=== PATIENT | female | born 1945 | race Caucasian/White ===

== ENCOUNTER → 2023-08-25 06:45 | Outpatient (REF) | payer MEDICARE, OTHER, SELFPAY ==
[2023-08-25 10:05] LABS: Urine Albumin Negative (Neg - Trace); Urine Bilirubin Negative (Negative); Urine Character Slightly Cloudy (Clear); Urine Color Straw; Urine Glucose Negative (Negative); Urine Ketone Negative (Negative); Urine Leukocyte 2+ (Negative); Urine Nitrite Positive (Negative); Urine Occult Blood Trace (Negative); Urine Urobilinogen Negative (Neg - 1+)
[2023-08-25 10:26] LABS: Urine Bacteria Many (Negative)
[2023-08-25 10:27] LABS: Urine White Cell 50-60 /HPF (0-5)
== END ==
LOC: OLABN 06:45
PROVIDERS: ATTENDING PHYSICIAN Student in an Organized Health Care Education/Training Program
DX: R30.9 Painful micturition, unspecified (principal)
CPT/HCPCS: 81003; 81015; 87077; 87086; 87186

== ENCOUNTER 2023-08-28 09:43 | Emergency (ER) | payer MEDICARE, OTHER, SELFPAY ==
[2023-08-28 09:49] LABS: Glucose - Point of Care 102 mg/dl (70-99)
--- NOTE | 2023-08-28 09:50 | ED.CVA ---
History of Present Illness
<Rufus Cohen PA-C - Last Filed: 08/28/23 11:09>
General
Chief Complaint: CVA/TIA Symptoms
Source: patient
Exam Limitations: none
Time Seen by Provider: 08/28/23 09:46
Onset of Stroke Symptoms
Onset of symptoms known: No
Time pt last seen normal is known: No
History of Present Illness
History of Present Illness:
78-year-old female from [facility] called prehospital stroke alert. Last seen normal last evening. Was noticed to be weak slightly garbled speech this morning at 7 AM. She recently was started on Macrobid for urinary tract infection.
History of Parkinson's. Not anticoagulated. She denies any unilateral numbness or weakness. She denies any significant headache. She denies any vision loss. No chest pain or shortness of breath. No other complaints at this time
Past History
<Rufus Cohen PA-C - Last Filed: 08/28/23 11:09>
Past History
ED Past Medical History: HTN and Other (Parkinson's disease, chronic back pain, overactive bladder)
ED Past Surgical History: Orthopedic
Social History
Tobacco: Non-smoker
Alcohol: None
Phy Exam
<Rufus Cohen PA-C - Last Filed: 08/28/23 11:09>
Physical Exam
Physical Exam:
General: Well-appearing female no acute respiratory distress
HEENT: Normocephalic atraumatic no obvious facial asymmetry
Heart: Regular rate and rhythm no murmurs
Lungs: Clear to auscultation bilaterally no wheezing
Neurologic exam: Alert and oriented x 3 no facial asymmetry or slurred speech extraocular's are intact finger-nose intact no obvious drift on exam
Extremities: No cyanosis mild edema bilateral lower extremities
Abdomen soft nontender nondistended
Course
<Rufus Cohen PA-C - Last Filed: 08/28/23 11:09>
Orders/Labs/Results
Orders:
Orders
08/28/23 09:50
CT Head W/o Iv Contrast Urgent
Comment:
Reason For Exam: weakness
08/28/23 09:53
Electrocardiogram (*1) Urgent
Reason for Study: TIA/Stroke
EKG- Treatment ONCE
08/28/23 10:15
Basic Metabolic Panel Urgent
Complete Blood Count/With Diff Urgent
Abnormal Lab Results
08/28/23 08/28/23
09:47 10:15
RBC 4.04 L 10^6/uL
(4.20-5.40)
Immature Gran % 0.8 H %
(0-0.5)
Monocytes % 9.8 H %
(1.7-9.3)
Carbon Dioxide 32 H mmol/L
(22-30)
BUN 25 H mg/dl
(7-17)
POC Glucose 102 H mg/dl
(70-99)
08/28/23 10:15
08/28/23 10:15
Vital Signs
Initial and Last Documented VS:
Initial Vital Signs
BP
133/72
08/28/23 10:08
Last Documented Vital Signs
Temp Pulse Resp BP Pulse Ox
98.0 F 69 15 133/72 94
08/28/23 10:10 08/28/23 10:30 08/28/23 10:30 08/28/23 10:10 08/28/23 10:30
<Kameron Alba DO - Last Filed: 08/28/23 10:18>
Orders/Labs/Results
Orders:
Orders
08/28/23 09:50
CT Head W/o Iv Contrast Urgent
Comment:
Reason For Exam: weakness
08/28/23 09:53
Electrocardiogram (*1) Urgent
Reason for Study: TIA/Stroke
EKG- Treatment ONCE
08/28/23 10:15
Basic Metabolic Panel Urgent
Complete Blood Count/With Diff Urgent
Abnormal Lab Results
08/28/23 08/28/23
09:47 10:15
RBC 4.04 L 10^6/uL
(4.20-5.40)
Immature Gran % 0.8 H %
(0-0.5)
Monocytes % 9.8 H %
(1.7-9.3)
Carbon Dioxide 32 H mmol/L
(22-30)
BUN 25 H mg/dl
(7-17)
POC Glucose 102 H mg/dl
(70-99)
08/28/23 10:15
08/28/23 10:15
Vital Signs
Initial and Last Documented VS:
Initial Vital Signs
BP
133/72
08/28/23 10:08
Last Documented Vital Signs
Temp Pulse Resp BP Pulse Ox
98.0 F 69 15 133/72 94
08/28/23 10:10 08/28/23 10:30 08/28/23 10:30 08/28/23 10:10 08/28/23 10:30
<Rufus Cohen PA-C - Last Filed: 08/28/23 11:09>
MDM/Problems Addressed
Differential Diagnosis Includes:
Reported generalized weakness and difficulty speaking. No obvious focal deficit on exam. Called hospital stroke alert. Neurology in the room upon entrance of the patient. CT of the head noncontrast pending. Will check labs.
Bedside glucose 102
<Rufus Cohen PA-C - Last Filed: 08/28/23 11:09>
*Critical Care Note
Total Time (30-74mins, 75-104mins- exclusive of procedures): Not Applicable
<Rufus Cohen PA-C - Last Filed: 08/28/23 11:09>
Update Note
Update Note:
Workup here essentially unremarkable. CT head negative labs reviewed without significant finding. Discussed case with neurology. No signs of acute stroke on workup. She is back to her baseline. Stable for discharge back to nursing facility.
ED Attending Note
<Rufus Cohen PA-C - Last Filed: 08/28/23 11:09>
-
Portions of this chart may have been created with voice recognition software.� Occasional wrong word or��sound alike� substitutions may have occurred due to the inherent limitations of voice recognition software.
<Kameron Alba DO - Last Filed: 08/28/23 10:18>
ED Attending Note
Patient seen and examined by attending physician: Yes
I performed the substantive portion of visit, reviewed & personally made and approve the management plan that is documented in note by myself or TORI.: Yes
ED Attending Note:
seen with Pa, stroke alert, RLS, parkinsons, felt off this am, uti antibiotic x 1 day
feels back to her baseline now
Discharge Plan
Departure
Patient Disposition: Home (Routine Discharge)
Date of Disposition: 08/28/23
Time of Disposition: 11:08
Patient with high blood pressure during this ER visit?: No
Discharge Problem:
Weakness
Instructions: Generalized Weakness
Prescriptions:
No Action
acetaminophen 325 mg Tablet
650 mg PO Q4HPRN MDD 3000 mg PRN (Reason: mild pain/fever>100.4)
chlorthalidone 25 mg Tablet
25 mg PO Q48H@0830
Patient Comments:
08/28/2023, hold if pulse is less than 60; hold if SBP is less than 110.
acetaminophen 650 mg Tablet Extended Release
650 mg PO BID@
magnesium hydroxide 400 mg/5 mL Suspension
2,400 mg PO HSPRN PRN (Reason: constipation)
bisacodyl [Dulcolax (bisacodyl)] 10 mg Suppository
10 mg NV DAILYPRN PRN (Reason: no BM when MOM is ineffective)
ropinirole 2 mg Tablet
2 mg PO TID@1229,229,2029
carbidopa-levodopa 25-100 mg Tablet
1.5 tab PO TID@829,
Systane (propylene glycol) 0.4-0.3 % Drops
1 drp BOTH EYES TID@829,1329,1829
carvedilol 12.5 mg Tablet
12.5 mg PO BID@
dicyclomine 10 mg Capsule
20 mg PO Q8HPRN PRN (Reason: flatulence/abd cramping)
nitrofurantoin monohyd/m-cryst [Macrobid] 100 mg Capsule
100 mg PO BID@
Rx Instructions:
08/28/2023, first date: 08/27/2023; x 5 days.
Referrals:
Prateek Newton DO [Family Provider] -
Activity Restrictions/Additional Instructions:
Please continue current treatment. Return here for worsening symptoms otherwise follow-up with primary doctor
Interventions
Interventions:
*Risk Screen - Suicide Last Done: 08/28/23 09:56
*General Assessment Last Done: 08/28/23 09:56
*Neglect/Abuse Screening Last Done: 08/28/23 09:56
ED- Fall Risk Assessment Last Done: 08/28/23 10:11
ED- Pulmonary Assessment Last Done: 08/28/23 10:11
ED- Neurological Assessment Last Done: 08/28/23 10:11
ED- Cardiac Assessment Last Done: 08/28/23 10:11
Discharge Date and Time
Print Language: CAP[place]
[2023-08-28 10:08] VITALS: BP 133/72
[2023-08-28 10:10] VITALS: BP 133/72
[2023-08-28 10:23] LABS: % Basophils 0.8 % (0-2); % Eosinophils 0.9 % (0-6); % Immature Granulocytes 0.8 % (0-0.5); % Lymphocytes 23.5 % (20.5-51.1); % Monocytes 9.8 % (1.7-9.3); % Neutrophils 64.2 % (42.2-75.2); Absolute Eosinophils 0.1 10^3/uL (0-0.7); Absolute Lymphocytes 1.3 10^3/uL (1.2-3.4); Absolute Monocytes 0.5 10^3/uL (0.1-0.6); Absolute Neutrophils 3.4 10^3/uL (1.4-6.5); Hemoglobin 12.5 g/dL (12.0-16.0); Mean Corp Hgb Conc. 33.8 g/dL (33.0-37.0); Mean Corpuscular Hgb 30.9 pg (27.0-31.0); Mean Corpuscular Volume 91.6 fL (81.0-99.0); Mean Platelet Volume 9.5 fL (7.4-10.4); Nucleated Red Blood Cells % 0 %; Platelet Count 207 10^3/uL (130-400); Red Blood Cell Count 4.04 10^6/uL (4.20-5.40); Red Cell Dist. Width 12.9 % (11.5-14.5); White Blood Cell Count 5.3 10^3/uL (4.8-10.8)
[2023-08-28 10:39] LABS: Blood Urea Nitrogen 25 mg/dl (7-17); Calcium 9.4 mg/dl (8.4-10.2); Carbon Dioxide 32 mmol/L (22-30); Chloride 100 mmol/L (98-107); Glucose 95 mg/dl (70-99); Sodium 135 mmol/L (135-145); eGFR > 60.00
[2023-08-28 11:01] VITALS: BP 139/76
[2023-08-28 12:00] VITALS: BP 177/90
--- NOTE | 2023-08-28 12:04 | CON.NEURO4 ---
Consultation - Neurology 4
-
CONSULTING PHYSICIAN: Ninfa Fernandez
REFERRING PHYSICIAN: ER
DICTATED BY: Ninfa Fernandez
DATE/TIME OF REQUEST: 08/28/23
DATE/TIME OF CONSULTATION: 08/28/23
Reason for Consultation: Stroke alert
History of Present Illness:
Patient is a 78-year-old woman with a past medical history of Parkinson's disease, hypertension, asthma, obstructive sleep apnea, restless leg syndrome presented to hospital as a stroke alert due to waking up with confusion this morning. She
presents from [facility] and says that upon awakening that she felt confused and out of her body this morning without any speech difficulty dysarthria unilateral weakness or paresthesia vision change. Reports she was recently started on Macrobid
for urinary tract infection manifesting with frequent urination. Patient does not think she has had any recent medications change she does state that she takes Sinemet has had Parkinson disease for many years.
Past Medical History: HTN, Parkinson's disease, RLS, BETINA, asthma, osteoporosis
Surgical History: B/L TKR, sinus surgery, bilateral cataract removal, shoulder repair, breast biopsy, d&c
Family History: Mother- Alzheimer's disease
Social History: Former tobacco. Denies alcohol and illicit drug use.
Allergies: Seasonal.
Review of Symptoms:
Patient denies any fever, headache, chest pain, shortness of breath, GI or symptoms.
Physical Exam:
Elderly woman with mild-moderate parkinsonism no signs of head injury or acute distress oropharynx is clear eyes are clear no lesions neck with no masses heart rate regular breathing unlabored abdomen soft nontender no lower extremity
Neurologic Examination:
Mental status is awake and alert conversational with no aphasia praxis is normal no neglect
Cranial nerves shows no dysarthria pupils 3 mm equal round react light bilaterally visual nathan intact confrontation bilaterally extraocular's are full with no nystagmus smile symmetric no dysarthria
Motor examination shows moderate parkinsonism throughout with some cogwheel rigidity bilaterally in the arms no focal weakness no pronator drift power is 5/5 for shoulder abduction hip flexion bilaterally
Intact to light touch no sensory neglect
Reflexes trace throughout with no clonus Babinski is negative bilateral
Normal finger-nose testing bilateral
Gait exam deferred
Neuro Imaging: CT head non contrast no acute abnormality
Impressions
Very likely this is a manifestation of mild toxic metabolic encephalopathy due to UTI in a patient with pre-existing Parkinson's disease and probably mild cognitive impairment due to Parkinson's disease at baseline. CT head noncontrast was
reassuring for no large structural problem. Patient feels back to baseline currently and has no concerning deficits for ischemic stroke
Recommendations:
1. Continue home medication regimen for parkinson's disease and RLS
2. Treat UTI
3. Minimize sedating medications
4. No further workup or monitoring recommended from my perspective
Discussed patient care with: ER staff
== END 2023-08-28 13:15 | disposition home or self-care (01) ==
LOC: EMR 09:43
PROVIDERS: Physician Assistant; EMERGENCY PHYSICIAN Emergency Medicine; FAMILY PHYSICIAN Student in an Organized Health Care Education/Training Program; OTHER PHYSICIAN Student in an Organized Health Care Education/Training Program
DX: R53.1 Weakness (principal); R47.9 Unspecified speech disturbances; R41.0 Disorientation, unspecified; R60.0 Localized edema; N39.0 Urinary tract infection, site not specified; I10 Essential (primary) hypertension; G20.A1 Parkinson's disease without dyskinesia, without mention of fluctuations; G89.29 Other chronic pain; N32.81 Overactive bladder; G25.81 Restless legs syndrome; J45.909 Unspecified asthma, uncomplicated; G47.33 Obstructive sleep apnea (adult) (pediatric); M81.0 Age-related osteoporosis without current pathological fracture; Z96.653 Presence of artificial knee joint, bilateral; Z87.891 Personal history of nicotine dependence; Z91.048 Other nonmedicinal substance allergy status
CPT/HCPCS: 99285; 70450; 80048; 82962; 85025; 93005

== ENCOUNTER → 2023-09-22 09:44 | Outpatient (REF) | payer MEDICARE, OTHER, SELFPAY ==
[2023-09-22 10:28] LABS: ALT (SGPT) < 10 U/L (0-35); AST (SGOT) 18 U/L (14-36); Albumin 3.7 g/dl (3.5-5.0); Alkaline Phosphatase 73 U/L (38-126); Blood Urea Nitrogen 25 mg/dl (7-17); Calcium 9.2 mg/dl (8.4-10.2); Carbon Dioxide 28 mmol/L (22-30); Chloride 103 mmol/L (98-107); Glucose 96 mg/dl (70-99); HDL Cholesterol 100 mg/dl; LDL Cholesterol, Calculated 55 mg/dl; Potassium 3.8 mmol/L (3.5-5.1); Sodium 138 mmol/L (135-145); Total Bilirubin 0.3 mg/dl (0.2-1.3); Total Cholesterol 177 mg/dl (50-199); Triglyceride 113 mg/dl (10-149); Very Low Density Lipoprotein 22 mg/dl (0-30); eGFR > 60.00
[2023-09-22 10:36] LABS: Hematocrit 36.5 % (37.0-47.0); Hemoglobin 12.1 g/dL (12.0-16.0); Mean Corp Hgb Conc. 33.2 g/dL (33.0-37.0); Mean Corpuscular Volume 93.6 fL (81.0-99.0); Mean Platelet Volume 10.2 fL (7.4-10.4); Platelet Count 206 10^3/uL (130-400); Red Cell Dist. Width 12.9 % (11.5-14.5); White Blood Cell Count 5.9 10^3/uL (4.8-10.8)
[2023-09-22 12:11] LABS: Glycohemoglobin (HgbA1c) 5.6 % (4.0-5.6)
== END ==
LOC: OLABN 09:44
PROVIDERS: ATTENDING PHYSICIAN Student in an Organized Health Care Education/Training Program
DX: I10 Essential (primary) hypertension (principal); Z79.899 Other long term (current) drug therapy
CPT/HCPCS: 36415; 80053; 80061; 83036; 85027

== ENCOUNTER → 2023-11-02 09:15 | Outpatient (REF) | payer MEDICARE, OTHER, SELFPAY ==
[2023-11-02 11:15] LABS: Urine Albumin Negative (Neg - Trace); Urine Bilirubin Negative (Negative); Urine Character Clear (Clear); Urine Color Yellow; Urine Glucose Negative (Negative); Urine Ketone Negative (Negative); Urine Leukocyte 2+ (Negative); Urine Nitrite Positive (Negative); Urine Occult Blood Trace (Negative); Urine Urobilinogen Negative (Neg - 1+)
[2023-11-02 11:57] LABS: Urine Bacteria Moderate (Negative); Urine Red Blood Cell 0-2 /HPF (0-2); Urine White Cell 60-70 /HPF (0-5)
[2023-11-02 11:58] LABS: Urine Urothelial Cell 0-2 /LPF (FEW)
== END ==
LOC: OLABN 09:15
PROVIDERS: ATTENDING PHYSICIAN Student in an Organized Health Care Education/Training Program
DX: R30.9 Painful micturition, unspecified (principal)
CPT/HCPCS: 81003; 81015; 87077; 87086; 87186

== ENCOUNTER → 2024-01-18 21:30 | Outpatient (REF) | payer MEDICARE, OTHER, SELFPAY ==
[2024-01-19 11:23] LABS: Urine Albumin Trace (Neg - Trace); Urine Bilirubin Negative (Negative); Urine Character Very Cloudy (Clear); Urine Color Yellow; Urine Glucose Negative (Negative); Urine Ketone Trace (Negative); Urine Leukocyte 1+ (Negative); Urine Nitrite Positive (Negative); Urine Occult Blood Negative (Negative); Urine Urobilinogen Negative (Neg - 1+)
[2024-01-19 12:52] LABS: Urine Bacteria Many (Negative); Urine Red Blood Cell None Seen /HPF (0-2)
[2024-01-19 12:53] LABS: Urine Triple Phosphate Crystal Present
== END ==
LOC: OLABN 21:30
PROVIDERS: ATTENDING PHYSICIAN Student in an Organized Health Care Education/Training Program
DX: R35.0 Frequency of micturition (principal)
CPT/HCPCS: 81003; 81015; 87086; 87088

== ENCOUNTER → 2024-02-22 12:12 | Outpatient (REF) | payer MEDICARE, OTHER, SELFPAY ==
[2024-02-22 12:30] LABS: Urine Character Clear (Clear); Urine Color Yellow; Urine Leukocyte 1+ (Negative); Urine Nitrite Positive (Negative)
[2024-02-22 12:31] LABS: Urine Albumin Trace (Neg - Trace); Urine Bilirubin Negative (Negative); Urine Glucose Negative (Negative); Urine Ketone Trace (Negative); Urine Occult Blood Trace (Negative); Urine Urobilinogen Negative (Neg - 1+)
[2024-02-22 12:32] LABS: Urine Bacteria Many (Negative); Urine Red Blood Cell 0-2 /HPF (0-2); Urine White Cell 40-50 /HPF (0-5)
== END ==
LOC: OLABN 12:12
PROVIDERS: ATTENDING PHYSICIAN Student in an Organized Health Care Education/Training Program; FAMILY PHYSICIAN Student in an Organized Health Care Education/Training Program
DX: R35.0 Frequency of micturition (principal)
CPT/HCPCS: 81003; 81015; 87077; 87086; 87186

== ENCOUNTER → 2024-03-22 10:14 | Outpatient (REF) | payer MEDICARE, OTHER, SELFPAY ==
[2024-03-22 13:13] LABS: Hematocrit 37.3 % (37.0-47.0); Hemoglobin 12.3 g/dL (12.0-16.0); Mean Corpuscular Hgb 30.1 pg (27.0-31.0); Mean Corpuscular Volume 91.4 fL (81.0-99.0); Mean Platelet Volume 10.3 fL (7.4-10.4); Platelet Count 195 10^3/uL (130-400); Red Blood Cell Count 4.08 10^6/uL (4.20-5.40); Red Cell Dist. Width 12.9 % (11.5-14.5); White Blood Cell Count 5.5 10^3/uL (4.8-10.8)
[2024-03-22 13:19] LABS: ALT (SGPT) 11 U/L (0-35); AST (SGOT) 16 U/L (14-36); Albumin 3.8 g/dl (3.5-5.0); Alkaline Phosphatase 65 U/L (38-126); Blood Urea Nitrogen 22 mg/dl (7-17); Calcium 9.4 mg/dl (8.4-10.2); Carbon Dioxide 27 mmol/L (22-30); Chloride 105 mmol/L (98-107); Glucose 94 mg/dl (70-99); HDL Cholesterol 91 mg/dl; LDL Cholesterol, Calculated 64 mg/dl; Potassium 4.2 mmol/L (3.5-5.1); Sodium 139 mmol/L (135-145); Total Bilirubin 0.5 mg/dl (0.2-1.3); Total Cholesterol 174 mg/dl (50-199); Triglyceride 96 mg/dl (10-149); Very Low Density Lipoprotein 19 mg/dl (0-30); eGFR > 60.00
[2024-03-23 09:34] LABS: Glycohemoglobin (HgbA1c) 5.5 % (4.0-5.6)
== END ==
LOC: OLABN 10:14
PROVIDERS: ATTENDING PHYSICIAN Student in an Organized Health Care Education/Training Program
DX: I10 Essential (primary) hypertension (principal); R73.09 Other abnormal glucose
CPT/HCPCS: 36415; 80053; 80061; 83036; 85027

== ENCOUNTER → 2024-04-06 13:10 | Outpatient (REF) | payer MEDICARE, OTHER, SELFPAY ==
[2024-04-06 16:46] LABS: Urine Albumin Trace (Neg - Trace); Urine Bilirubin Negative (Negative); Urine Character Clear (Clear); Urine Color Yellow; Urine Glucose Negative (Negative); Urine Ketone Negative (Negative); Urine Leukocyte 1+ (Negative); Urine Nitrite Positive (Negative); Urine Occult Blood Negative (Negative); Urine Urobilinogen Negative (Neg - 1+)
[2024-04-06 17:08] LABS: Urine Bacteria Many (Negative); Urine Red Blood Cell 0-2 /HPF (0-2); Urine Squamous Cell 26-30 /LPF (Few); Urine White Cell 26-30 /HPF (0-5)
== END ==
LOC: OLABN 13:10
PROVIDERS: ATTENDING PHYSICIAN Student in an Organized Health Care Education/Training Program
DX: R35.0 Frequency of micturition (principal)
CPT/HCPCS: 81003; 81015; 87077; 87086

== ENCOUNTER → 2024-06-16 21:15 | Outpatient (REF) | payer MEDICARE, OTHER, SELFPAY ==
[2024-06-17 12:12] LABS: Urine Albumin 2+ (Neg - Trace); Urine Bilirubin Negative (Negative); Urine Character Clear (Clear); Urine Color Yellow; Urine Glucose Negative (Negative); Urine Ketone Negative (Negative); Urine Leukocyte 3+ (Negative); Urine Nitrite Positive (Negative); Urine Occult Blood 1+ (Negative); Urine Specific Gravity 1.025 (<1.030); Urine Urobilinogen Negative (Neg - 1+)
[2024-06-17 12:26] LABS: Urine Calcium Oxalate Crystals Present
[2024-06-17 12:27] LABS: Urine Bacteria Moderate (Negative); Urine White Cell 30-40 /HPF (0-5)
== END ==
LOC: OLABN 21:15
PROVIDERS: ATTENDING PHYSICIAN Student in an Organized Health Care Education/Training Program
DX: R30.9 Painful micturition, unspecified (principal)
CPT/HCPCS: 81003; 81015; 87077; 87086

== ENCOUNTER → 2024-08-08 11:01 | Outpatient (REF) | payer MEDICARE, OTHER, SELFPAY ==
[2024-08-08 12:47] LABS: Hematocrit 36.8 % (37.0-47.0); Mean Corp Hgb Conc. 32.6 g/dL (33.0-37.0); Mean Corpuscular Hgb 30.2 pg (27.0-31.0); Mean Corpuscular Volume 92.5 fL (81.0-99.0); Mean Platelet Volume 10.2 fL (7.4-10.4); Platelet Count 186 10^3/uL (130-400); Red Blood Cell Count 3.98 10^6/uL (4.20-5.40); Red Cell Dist. Width 12.8 % (11.5-14.5); White Blood Cell Count 5.5 10^3/uL (4.8-10.8)
[2024-08-08 13:00] LABS: Blood Urea Nitrogen 19 mg/dl (7-17); Calcium 9.1 mg/dl (8.4-10.2); Carbon Dioxide 29 mmol/L (22-30); Chloride 104 mmol/L (98-107); Glucose 92 mg/dl (70-99); Potassium 4.3 mmol/L (3.5-5.1); Sodium 139 mmol/L (135-145); eGFR > 60.00
== END ==
LOC: OLABN 11:01
PROVIDERS: ATTENDING PHYSICIAN Student in an Organized Health Care Education/Training Program
DX: I10 Essential (primary) hypertension (principal)
CPT/HCPCS: 36415; 80048; 85027

== ENCOUNTER 2024-09-02 06:12 | Day surgery (SDC) | payer MEDICARE, OTHER, SELFPAY ==
[2024-09-02] VITALS (17 sets, daily range): BP systolic 109–226; BP diastolic 56–122; BMI 29.8
[2024-09-02] MEDS: NORMOSOL-R/PLASMALYTE-A 1000 IV (11:37)
[2024-09-02] MEDS: APRESOLINE 10 MG IV (15:17)
== END 2024-09-02 16:35 | disposition home or self-care (01) ==
LOC: SDS 06:12
PROVIDERS: ATTENDING PHYSICIAN Urology
DX: N31.9 Neuromuscular dysfunction of bladder, unspecified (principal)
CPT/HCPCS: 51040; 93005

== ENCOUNTER → 2024-09-20 09:42 | Outpatient (REF) | payer MEDICARE, OTHER, SELFPAY ==
[2024-09-20 10:29] LABS: % Basophils 0.7 % (0-2); % Eosinophils 1.7 % (0-6); % Immature Granulocytes 0.5 % (0-0.5); % Lymphocytes 26.9 % (20.5-51.1); % Monocytes 9.4 % (1.7-9.3); % Neutrophils 60.8 % (42.2-75.2); Absolute Eosinophils 0.1 10^3/uL (0-0.7); Absolute Lymphocytes 1.6 10^3/uL (1.2-3.4); Absolute Monocytes 0.6 10^3/uL (0.1-0.6); Absolute Neutrophils 3.6 10^3/uL (1.4-6.5); Hematocrit 37.5 % (37.0-47.0); Hemoglobin 12.3 g/dL (12.0-16.0); Mean Corp Hgb Conc. 32.8 g/dL (33.0-37.0); Mean Corpuscular Hgb 30.1 pg (27.0-31.0); Mean Corpuscular Volume 91.9 fL (81.0-99.0); Mean Platelet Volume 10.4 fL (7.4-10.4); Nucleated Red Blood Cells % 0 %; Platelet Count 192 10^3/uL (130-400); Red Blood Cell Count 4.08 10^6/uL (4.20-5.40); Red Cell Dist. Width 12.9 % (11.5-14.5)
[2024-09-20 11:21] LABS: Glycohemoglobin (HgbA1c) 5.7 % (4.0-5.6)
[2024-09-20 11:56] LABS: ALT (SGPT) < 10 U/L (0-35); AST (SGOT) 17 U/L (14-36); Albumin 3.7 g/dl (3.5-5.0); Alkaline Phosphatase 63 U/L (38-126); Blood Urea Nitrogen 21 mg/dl (7-17); Carbon Dioxide 24 mmol/L (22-30); Chloride 112 mmol/L (98-107); Glucose 77 mg/dl (70-99); HDL Cholesterol 79 mg/dl; LDL Cholesterol, Calculated 75 mg/dl; Potassium 4.5 mmol/L (3.5-5.1); Sodium 140 mmol/L (135-145); Total Bilirubin 0.6 mg/dl (0.2-1.3); Total Cholesterol 167 mg/dl (50-199); Total Protein 5.9 g/dl (6.3-8.2); Triglyceride 66 mg/dl (10-149); Very Low Density Lipoprotein 13 mg/dl (0-30); eGFR > 60.00
== END ==
LOC: OLABN 09:42
PROVIDERS: ATTENDING PHYSICIAN Student in an Organized Health Care Education/Training Program
DX: I10 Essential (primary) hypertension (principal); R73.9 Hyperglycemia, unspecified
CPT/HCPCS: 36415; 80053; 80061; 83036; 85025

== ENCOUNTER → 2024-11-28 21:28 | Outpatient (REF) | payer MEDICARE, OTHER, SELFPAY ==
[2024-11-29 12:37] LABS: Urine Character Slightly Cloudy (Clear)
[2024-11-29 14:51] LABS: Urine White Cell 26-30 /HPF (0-5)
== END ==
LOC: OLABN 21:28
PROVIDERS: ATTENDING PHYSICIAN Student in an Organized Health Care Education/Training Program
DX: R82.90 Unspecified abnormal findings in urine (principal)
CPT/HCPCS: 81003; 81015; 87077; 87086

== ENCOUNTER → 2025-01-24 10:44 | Outpatient (REF) | payer MEDICARE, OTHER, SELFPAY ==
[2025-01-24 12:54] LABS: Urine Character Cloudy (Clear)
[2025-01-24 14:36] LABS: Urine Squamous Cell None seen /LPF (Few)
[2025-01-24 14:37] LABS: Urine Red Blood Cell 21-25 /HPF (0-2); Urine White Cell 30-40 /HPF (0-5)
== END ==
LOC: OLABN 10:44
PROVIDERS: ATTENDING PHYSICIAN Student in an Organized Health Care Education/Training Program
DX: R35.0 Frequency of micturition (principal)
CPT/HCPCS: 81003; 81015; 87086

== ENCOUNTER → 2025-01-26 12:05 | Outpatient (REF) | payer MEDICARE, OTHER, SELFPAY ==
[2025-01-26 13:06] LABS: Urine Character Cloudy (Clear)
[2025-01-26 13:41] LABS: Urine White Cell 90-100 /HPF (0-5)
[2025-01-26 13:44] LABS: Urine Squamous Cell 0-2 /LPF (Few)
== END ==
LOC: OLABN 12:05
PROVIDERS: ATTENDING PHYSICIAN Student in an Organized Health Care Education/Training Program
DX: R30.0 Dysuria (principal)
CPT/HCPCS: 81003; 81015; 87086

== ENCOUNTER → 2025-01-29 08:39 | Outpatient (REF) | payer MEDICARE, OTHER, SELFPAY ==
[2025-01-29 10:54] LABS: Urine Character Cloudy (Clear)
[2025-01-29 11:08] LABS: Urine Red Blood Cell 0-2 /HPF (0-2); Urine White Cell 0-2 /HPF (0-5)
== END ==
LOC: OLABN 08:39
PROVIDERS: ATTENDING PHYSICIAN Student in an Organized Health Care Education/Training Program
DX: R30.0 Dysuria (principal)
CPT/HCPCS: 81003; 81015; 87086

== ENCOUNTER 2025-02-01 16:20 | Inpatient (IN) | payer MEDICARE, OTHER, SELFPAY ==
[2025-02-01] VITALS (9 sets, daily range): BP systolic 160–195; BP diastolic 67–114; BMI 27.7
[2025-02-01 10:58] LABS: Glucose - Point of Care 115 mg/dl (70-99)
[2025-02-01] MEDS: NSS 1000 IV ×3 (11:06→20:35)
[2025-02-01] MEDS: OFIRMEV 100 IV (11:06)
--- NOTE | 2025-02-01 11:10 | ED.GENMED ---
History of Present Illness
<Cayden Kaba PA-C - Last Filed: 02/01/25 16:24>
General
Chief Complaint: Failure to Thrive
Time Seen by Provider: 02/01/25 10:39
History of Present Illness
History of Present Illness:
79-year-old female presents to the emergency department for evaluation of lethargy and fever. She does have an underlying history of Parkinson's and dementia but according to her daughter is normally communicative and responsive, per [facility]
notes she has been extremely lethargic throughout the duration of the morning. She does have a chronic suprapubic catheter and urine appears infected and murky on arrival. She is unable to provide any history due to mental status change
Past History
<Cayden Kaba PA-C - Last Filed: 02/01/25 16:24>
Past History
ED Past Medical History: HTN and Other (Parkinson's disease, chronic back pain, overactive bladder)
ED Past Surgical History: Orthopedic
Social History
Tobacco: Non-smoker
Alcohol: None
Review of Systems
<Cayden Kaba PA-C - Last Filed: 02/01/25 16:24>
Review of Systems
Allergies reviewed?: Yes
All Other Systems: ROS reviewed and negative except as documented in HPI and ROS
Phy Exam
<Cayden Kaba PA-C - Last Filed: 02/01/25 16:24>
Physical Exam
Physical Exam:
GEN: Toxic appearing, somnolent
HEENT: Oral mucosa dry, no scleral icterus, pupils equal round reactive to light
Cardiac: Regular rate, no murmur
Lung: No respiratory distress, no tachypnea, lungs clear however diminished bibasilar due to poor inspiratory effort
Abdomen: Nondistended, no pain response
MSK: No gross deformity or injuries
Skin: Good color, no pallor or jaundice, no rashes
Neuro: Somnolent, opens eyes to loud voice, nonverbal, does not follow commands, GCS 8
Psych: Calm, cooperative
Course
<Cayden Kaba PA-C - Last Filed: 02/01/25 16:24>
Orders/Labs/Results
Orders:
Orders
02/01/25
Electrocardiogram (*1) Stat
Reason for Study: Chest Pain
Comment: DONE
02/01/25 10:51
0.9% Sodium Chloride 1000 ml [Nss] 1,000 ml IV BOLUS
Acetaminophen 1000MG/100Ml [Ofirmev] 1,000 mg in 100 ml IV ONCE
Acetaminophen IV Indication:: ED Narcotic History-ONCE
02/01/25 10:52
CT Head W/o Iv Contrast Urgent
Comment:
Reason For Exam: AMS
CR Chest Portable - 1 View Urgent
Comment:
Reason For Exam: sepsis
Reason Study Needs to be Portable: Other
02/01/25 11:00
COVID-19 Antigen Urgent
Source: Nasal Swab
Complete Blood Count/With Diff Urgent
Comprehensive Metabolic Panel Urgent
Lactic Acid Q4H
Comment: CANCEL 2nd LACTIC ACID IF 1st LACTIC ACID IS LESS THAN 2
Prothrombin Time Urgent
Blood Culture Q30M
CESAR Source: Blood/Venous
Specimen Description:
Influenza A+B Rapid Molecular Urgent
CESAR Source: Nasal Swab
Specimen Description:
02/01/25 12:50
0.9% Sodium Chloride 1000 ml [Nss] 1,000 ml IV BOLUS
02/01/25 13:35
CefTRIAXone [Rocephin] 1,000 mg IV NOW STA
02/01/25 13:38
Blood Culture Q30M
CESAR Source: Blood/Venous
Specimen Description:
02/01/25 14:52
Urinalysis Reflex To Culture Urgent
Date Specimen was Collected: 02/01/25
Time Specimen was Collected: 10:58
Urine Microscopic Reflex Cult Urgent
Urine Culture Urgent
CESAR Source: U
Specimen Description:
Obtained by: Random
Date Specimen was Collected: 02/01/25
Time Specimen was Collected: 10:
02/01/25 15:55
Admit/Transfer Patient As Directed
Co-Sign Provider:
Level of Care: Inpatient admission
Assign to:: Medical/Surgical
Physician / Group: Vamshi Marcelino
Diagnosis: sepsis secondary to UTI
Reason for Hospitalization: sepsis secondary to UTI
Expected length of stay greater than two midnights?: Yes
ELOS- Estimated Length of Stay in days: 3
I certify the patient meets the requirements for IP care: Yes
PRN Pain Medication Management As Directed
May give lesser potent ordered pain med per pt: Yes
preference::
Protocol:: Medication orders for pain may be administered in a
manner that supports deferring to patient preference
when the pt is:
- Requesting an ordered lesser potent pain medication.
Least to most potent pain medications are defined
as: acetaminophen < NSAID < tramadol < opioids
(morphine, oxycodone, hydromorphone).
- Requesting a lesser dose of the same medication IF
ORDERED.
- Requesting a less intrusive route of administration
if both routes are prescribed by the provider (PO <
IV).
02/01/25 15:57
Code Status As Directed
Resuscitation Status: Do not resuscitate
Reached after discussion with pt or family/Healthcare POA: Yes
02/01/25 16:06
DNR Bracelet Application ONCE
02/01/25 16:10
CT Abd/pel W Iv And Oral Contr Routine
Comment:
Reason For Exam: abdominal pain and sepsis
Iohexol [Omnipaque] See Protocol PO NOW STA
Abnormal Lab Results
02/01/25 02/01/25 02/01/25
10:57 11:00 14:52
Absolute Neuts (auto) 7.3 H 10^3/uL
(1.4-6.5)
Absolute Lymphs (auto) 1.1 L 10^3/uL
(1.2-3.4)
Absolute Monos (auto) 0.9 H 10^3/uL
(0.1-0.6)
Neutrophils % 77.9 H %
(42.2-75.2)
Lymphocytes % 11.3 L %
(20.5-51.1)
Monocytes % 9.9 H %
(1.7-9.3)
Chloride 110 H mmol/L
(98-107)
Glucose 116 H mg/dl
(70-99)
Lactic Acid 0.6 L mmol/L
(0.7-2.0)
Total Protein 6.0 L g/dl
(6.3-8.2)
Ur Occult Blood Reflex 4+ A
(Negative)
Urine Nitrite (Reflex) Positive A
(Negative)
Leukocyte Esterase Rfl 3+ A
(Negative)
Urine RBC 16-20 A /HPF
(0-2)
Urine WBC (Reflex) 30-40 A /HPF
(0-5)
Urine Bacteria (Reflex) Moderate A
(Negative)
Urine Albumin (Reflex) 2+ A
(Neg - Trace)
POC Glucose 115 H mg/dl
(70-99)
02/01/25 11:00
02/01/25 11:00
Vital Signs
Initial and Last Documented VS:
Initial Vital Signs
Temp Pulse Resp BP Pulse Ox
100.5 F H 78 16 164/93 95
02/01/25 10:40 02/01/25 10:40 02/01/25 10:40 02/01/25 10:40 02/01/25 10:40
Last Documented Vital Signs
Temp Pulse Resp BP Pulse Ox
99.8 F 76 29 174/92 97
02/01/25 13:00 02/01/25 14:45 02/01/25 14:45 02/01/25 14:00 02/01/25 14:15
<Kameron Alba, DO - Last Filed: 02/01/25 13:55>
Orders/Labs/Results
Orders:
Orders
02/01/25
Electrocardiogram (*1) Stat
Reason for Study: Chest Pain
Comment: DONE
02/01/25 10:51
0.9% Sodium Chloride 1000 ml [Nss] 1,000 ml IV BOLUS
Acetaminophen 1000MG/100Ml [Ofirmev] 1,000 mg in 100 ml IV ONCE
Acetaminophen IV Indication:: ED Narcotic History-ONCE
02/01/25 10:52
CT Head W/o Iv Contrast Urgent
Comment:
Reason For Exam: AMS
CR Chest Portable - 1 View Urgent
Comment:
Reason For Exam: sepsis
Reason Study Needs to be Portable: Other
02/01/25 11:00
COVID-19 Antigen Urgent
Source: Nasal Swab
Complete Blood Count/With Diff Urgent
Comprehensive Metabolic Panel Urgent
Lactic Acid Q4H
Comment: CANCEL 2nd LACTIC ACID IF 1st LACTIC ACID IS LESS THAN 2
Prothrombin Time Urgent
Blood Culture Q30M
CESAR Source: Blood/Venous
Specimen Description:
Influenza A+B Rapid Molecular Urgent
CESAR Source: Nasal Swab
Specimen Description:
02/01/25 12:50
0.9% Sodium Chloride 1000 ml [Nss] 1,000 ml IV BOLUS
02/01/25 13:35
CefTRIAXone [Rocephin] 1,000 mg IV NOW STA
02/01/25 13:38
Blood Culture Q30M
CESAR Source: Blood/Venous
Specimen Description:
02/01/25 14:52
Urinalysis Reflex To Culture Urgent
Date Specimen was Collected: 02/01/25
Time Specimen was Collected: 10:58
Urine Microscopic Reflex Cult Urgent
Urine Culture Urgent
CESAR Source: U
Specimen Description:
Obtained by: Random
Date Specimen was Collected: 02/01/25
Time Specimen was Collected: 10:58
02/01/25 15:55
Admit/Transfer Patient As Directed
Co-Sign Provider:
Level of Care: Inpatient admission
Assign to:: Medical/Surgical
Physician / Group: Vamshi Marcelino
Diagnosis: sepsis secondary to UTI
Reason for Hospitalization: sepsis secondary to UTI
Expected length of stay greater than two midnights?: Yes
ELOS- Estimated Length of Stay in days: 3
I certify the patient meets the requirements for IP care: Yes
PRN Pain Medication Management As Directed
May give lesser potent ordered pain med per pt: Yes
preference::
Protocol:: Medication orders for pain may be administered in a
manner that supports deferring to patient preference
when the pt is:
- Requesting an ordered lesser potent pain medication.
Least to most potent pain medications are defined
as: acetaminophen < NSAID < tramadol < opioids
(morphine, oxycodone, hydromorphone).
- Requesting a lesser dose of the same medication IF
ORDERED.
- Requesting a less intrusive route of administration
if both routes are prescribed by the provider (PO <
IV).
02/01/25 15:57
Code Status As Directed
Resuscitation Status: Do not resuscitate
Reached after discussion with pt or family/Healthcare POA: Yes
02/01/25 16:06
DNR Bracelet Application ONCE
02/01/25 16:10
CT Abd/pel W Iv And Oral Contr Routine
Comment:
Reason For Exam: abdominal pain and sepsis
Iohexol [Omnipaque] See Protocol PO NOW STA
Abnormal Lab Results
02/01/25 02/01/25 02/01/25
10:57 11:00 14:52
Absolute Neuts (auto) 7.3 H 10^3/uL
(1.4-6.5)
Absolute Lymphs (auto) 1.1 L 10^3/uL
(1.2-3.4)
Absolute Monos (auto) 0.9 H 10^3/uL
(0.1-0.6)
Neutrophils % 77.9 H %
(42.2-75.2)
Lymphocytes % 11.3 L %
(20.5-51.1)
Monocytes % 9.9 H %
(1.7-9.3)
Chloride 110 H mmol/L
(98-107)
Glucose 116 H mg/dl
(70-99)
Lactic Acid 0.6 L mmol/L
(0.7-2.0)
Total Protein 6.0 L g/dl
(6.3-8.2)
Ur Occult Blood Reflex 4+ A
(Negative)
Urine Nitrite (Reflex) Positive A
(Negative)
Leukocyte Esterase Rfl 3+ A
(Negative)
Urine RBC 16-20 A /HPF
(0-2)
Urine WBC (Reflex) 30-40 A /HPF
(0-5)
Urine Bacteria (Reflex) Moderate A
(Negative)
Urine Albumin (Reflex) 2+ A
(Neg - Trace)
POC Glucose 115 H mg/dl
(70-99)
02/01/25 11:00
02/01/25 11:00
Vital Signs
Initial and Last Documented VS:
Initial Vital Signs
Temp Pulse Resp BP Pulse Ox
100.5 F H 78 16 164/93 95
02/01/25 10:40 02/01/25 10:40 02/01/25 10:40 02/01/25 10:40 02/01/25 10:40
Last Documented Vital Signs
Temp Pulse Resp BP Pulse Ox
99.8 F 76 29 174/92 97
02/01/25 13:00 02/01/25 14:45 02/01/25 14:45 02/01/25 14:00 02/01/25 14:15
Procedures
<Cayden Kaba PA-C - Last Filed: 02/01/25 16:24>
Urinary Catheter
Procedure completed by: Cayden Kaba PA-C
Type of urinary catheter: other (suprapubic)
Catheter size (welsh): 18
Urine description: other (oliguric)
Urine output (ml): 0
Additional information:
Suprapubic exchanged at bedside due to murky urine in existing cath
<Cayden Kaba PA-C - Last Filed: 02/01/25 16:24>
MDM/Problems Addressed
MDM/Problems Addressed:
79-year-old female arrives somnolent/altered with temp 100.5 and profoundly murky/purulent urine in her suprapubic catheter. Initially the catheter was exchanged at the bedside however no urine output was noted. Patient was profoundly hypovolemic
thus was given IV fluids and IV antipyretics. After prolonged period she remained an uric thus the catheter was reassessed and ultimately exchanged for new catheter which did yield sediment filled urine output. Subsequent urinalysis does reveal
consistency and findings of urinary tract infection. Based on prior microbiology reports third-generation cephalosporin should be adequate coverage for the patient's prior microbial species. I did confirm DNR status with the patient's daughter
however she would like her hospitalized for IV fluids and IV antibiotics. Will admit to the hospitalist service
<Cayden Kaba PA-C - Last Filed: 02/01/25 16:24>
*Pulse Oximetry
SaO2: 95
Oxygen Mode of Delivery: Room air
Patient hypoxic: no
*Critical Care Note
Total Time (30-74mins, 75-104mins- exclusive of procedures): Not Applicable
<Cayden Kaba PA-C - Last Filed: 02/01/25 16:24>
Update Note
Update Note:
Discussed case with daughter Randi via telephone, she would like her mother hospitalized for treatment of infection however agrees to uphold the outstanding POLST form indicating DNR, no heroic measures
Suprapubic catheter was initially changed by me at the bedside after arrival due to visibly purulent urine in her existing tubing. After placement no urine output was noted however the patient is visibly dehydrated thus we opted for IV hydration.
After 2 L of IV fluids the patient remained an uric, bedside ultrasound revealed that the catheter was in the bladder however urine was noted in the bladder. We were able to flush the catheter however no urine return was noted. Catheter was then
exchanged for a new suprapubic catheter which immediately returned sediment filled urine.
ED Attending Note
<Cayden Kaba PA-C - Last Filed: 02/01/25 16:24>
-
Portions of this chart may have been created with voice recognition software.� Occasional wrong word or��sound alike� substitutions may have occurred due to the inherent limitations of voice recognition software.
<Kameron Alba DO - Last Filed: 02/01/25 13:55>
ED Attending Note
Patient seen and examined by attending physician: Yes
I performed the substantive portion of visit, reviewed & personally made and approve the management plan that is documented in note by myself or TORI.: Yes
ED Attending Note:
Seen with PA agree with assessment and plan ill-appearing female
Goals of care and advance directive were clarified with the PA and the daughter she apparently would want her to be hospitalized now for antibiotics
Discharge Plan
Departure
Patient Disposition: Admit
Date of Disposition: 02/01/25
Time of Disposition: 13:40
Admit to: Med/Surg
Presentation/result/management discussed w/ accepting /: Hospitalist
Discharge Problem:
Urinary tract infection, Toxic metabolic encephalopathy
Prescriptions:
No Action
acetaminophen 325 mg Tablet
650 mg PO Q4HPRN PRN (Reason: mild pain/fever>100.4)
acetaminophen 650 mg Tablet Extended Release
650 mg PO BID
bisacodyl [Dulcolax (bisacodyl)] 10 mg Suppository
10 mg DC DAILYPRN PRN (Reason: no BM when MOM is ineffective)
ropinirole 2 mg Tablet
2 mg PO TID@1230,0230,2030
carbidopa-levodopa 25-100 mg Tablet
2 tab PO DAILY@0830
Systane (propylene glycol) 0.4-0.3 % Drops
1 drp BOTH EYES TID
carvedilol 12.5 mg Tablet
12.5 mg PO BID
ascorbic acid (vitamin C) [Vitamin C] 500 mg Tablet
500 mg PO BID
estradiol 0.01 % (0.1 mg/gram) Cream
1 g VAGINAL MOTH@2000
carbidopa-levodopa 25-100 mg Tablet
1.5 tab PO BID@1300,1700
tramadol 50 mg Tablet
50 mg PO Q6HPRN PRN (Reason: moderate pain)
magnesium hydroxide [Milk of Magnesia] 400 mg/5 mL Suspension
2,400 mg PO HSPRN PRN (Reason: constipation)
ropinirole 0.5 mg Tablet
0.5 mg PO DAILY@1700
mirtazapine 15 mg Tablet
15 mg PO HS
Referrals:
Prateek Newton DO [Family Provider, Family Practice]
Discharge Date and Time
Print Language: CITIZEN [place]
[2025-02-01 11:18] LABS: Hematocrit 39.2 % (37.0-47.0); Hemoglobin 13.1 g/dL (12.0-16.0); Mean Corp Hgb Conc. 33.4 g/dL (33.0-37.0); Mean Corpuscular Volume 89.7 fL (81.0-99.0); Nucleated Red Blood Cells % 0 %; Platelet Count 185 10^3/uL (130-400); Red Cell Dist. Width 12.6 % (11.5-14.5)
[2025-02-01 11:25] LABS: INR 0.96; PT 13.3 Sec (11.4-14.6)
[2025-02-01 11:26] LABS: COVID-19 Antigen Negative (Negative)
[2025-02-01 11:46] LABS: ALT (SGPT) < 10 U/L (0-35); AST (SGOT) 18 U/L (14-36); Albumin 3.8 g/dl (3.5-5.0); Alkaline Phosphatase 67 U/L (38-126); Blood Urea Nitrogen 15 mg/dl (7-17); Calcium 9.2 mg/dl (8.4-10.2); Carbon Dioxide 29 mmol/L (22-30); Chloride 110 mmol/L (98-107); Glucose 116 mg/dl (70-99); Potassium 3.7 mmol/L (3.5-5.1); Sodium 145 mmol/L (135-145); Total Protein 6.0 g/dl (6.3-8.2); eGFR > 60.00
[2025-02-01] MEDS: ROCEPHIN 1000 MG IV (13:39)
[2025-02-01 15:00] LABS: Urine Character Cloudy (Clear)
[2025-02-01 15:08] LABS: Urine Red Blood Cell 16-20 /HPF (0-2); Urine Squamous Cell 0-2 /LPF (Few); Urine Urothelial Cell 0-2 /LPF (FEW); Urine White Cell 30-40 /HPF (0-5)
--- NOTE | 2025-02-01 15:09 | W.PN.UPDATE ---
Update Note
Progress Note Update
79 female history of parkinsonian syndrome with concern of multiple system atrophy, dementia, hypertension, BETINA who presented from [facility] with failure to thrive and lethargy.
While in the ED noted to have a temp of 100.5, iv aceatminophen provided, spt exchnaged, wbc 9.8, bp 170's, cr/bun 0.7/60. isotonic saline x2l provided along with ctx. CTBrain wihtout acute evidence.
Acute TME vs progressive dementia
DDx: dehydration related to FTT vs UTI
IVF
Follow up UA and UCx
Sepsis (Temp >100.4/RR >20), source ?
Would check a CTAP with con to be sure we are not missing any other potential sources of sepsis
UA and UCx
IV Atb
Bcx
CTAP
Parkinsons
Conitnue carbidopa-levodopa
RLS
Continue ropinirole
HTN
Continue antihypertensives
--- NOTE | 2025-02-01 16:48 | HPS.HSE ---
Addendum entered and electronically signed by Vamshi Marcelino MD 02/02/25 11:39:
see update note
Original Note:
Family Physician
-
Family Physician: Prateek Newton DO
Chief Complaint
-
Lethargy, fever
History of Present Illness
79-year-old female with PMH of HTN,Parkinson's disease, chronic back pain, overactive bladder, depression PAD, sleep apnea with occasional CPAP use, restless leg syndrome, multiple UTIs. Presented to the ED from the nursing facility with fever and
lethargy, shortness of breath , abdominal pain and altered in mental status. She is unable to provide any history due to mental status, spoke with her daughter (Randi) who stated that her mother normally communicative and responsive and using
walker as a baseline , per [facility] she is talkative person and eat soft food at baseline and she has been extremely lethargic throughout the duration of the morning.
She does have a chronic suprapubic catheter which has been exchanged at ER.
CT scan of the head, chest X-ray and EKG done at the ER and were all normal. Urinalysis showed bacterial infection without leukocytosis.
Did confirm DNR, DNI status with the patient's daughter and medication list confirmed with nursing facility.
Medical History
Past Medical History
Past Medical History: Reports Dementia
Additional Past Medical History:
Parkinson dementia
Hypertension
Multiple UTIs
Depression
Restless leg syndrome
COPD on occasional CPAP
Peripheral Artery Disease
Chronic Back pain
Over active bladder
Past Surgical History: Reports Other
Additional Past Surgical History:
Lumbar laminectomy
Ganglian cyst removal
Right shoulder surgery
Social History
Unable to obtain full social history at this time due to: Dementia
Tobacco: Non-smoker
Alcohol: None
Drug: None
Living: Assisted Living
Family History
Family History: Not pertinent
Allergies / Home Medications
Allergies reflects when Allergies were last updated in [facility].
Home Medications with original date entered in [facility]
Allergy/Medication List:
Allergies
Allergy/AdvReac Type Severity Reaction Status Date / Time
seasonal Allergy sneezing, Uncoded 09/02/24 11:09
watery eyes
Home Medications
acetaminophen 325 mg tablet 650 mg PO Q4HPRN PRN mild pain/fever>100.4 03/26/23
acetaminophen 650 mg tablet,extended release 650 mg PO BID 03/26/23
bisacodyl 10 mg rectal suppository (Dulcolax (bisacodyl)) 10 mg [place] DAILYPRN PRN no BM when MOM is ineffective 03/26/23
carbidopa 25 mg-levodopa 100 mg tablet 2 tab PO DAILY@0830 03/26/23
peg 400-propylene glycol 0.4 %-0.3 % eye drops (Systane (propylene glycol)) 1 drp BOTH EYES TID 03/26/23
ropinirole 2 mg tablet 2 mg PO TID@1230,0230,2030 03/26/23
carvedilol 12.5 mg tablet 12.5 mg PO BID 08/28/23
ascorbic acid (vitamin C) 500 mg tablet (Vitamin C) 500 mg PO BID 08/29/24
carbidopa 25 mg-levodopa 100 mg tablet 1.5 tab PO BID@1300,1700 08/29/24
estradiol 0.01% (0.1 mg/gram) vaginal cream 1 g vaginal MOTH@199908/29/24
magnesium hydroxide 400 mg/5 mL oral suspension (Milk of Magnesia) 2,400 mg PO HSPRN PRN constipation 02/01/25
mirtazapine 15 mg tablet 15 mg PO HS 02/01/25
ropinirole 0.5 mg tablet 0.5 mg PO DAILY@1700 02/01/25
tramadol 50 mg tablet 50 mg PO Q6HPRN PRN moderate pain 02/01/25
Review of Systems
-
History Source: Patient
Cardiac: Reports Other (shortness of breath)
Abdomen/GI: Reports Abdominal Pain
Musculoskeletal: Reports Other (back pain)
Neurological: Reports Weakness
Physical Exam
Vital Signs
Vital Signs
Temp Pulse Resp BP Pulse Ox
99.8 F 72 18 195/99 93
02/01/25 13:00 02/01/25 16:45 02/01/25 16:45 02/01/25 15:00 02/01/25 16:45
Physical Exam
General: Fever and Slurred Speech
HEENT: NormoCephalic, Anicteric and Other (dry mouth )
Respiratory: Clear
Cardiac: S1/S2 and Regular Rhythm
GI: Soft and Non Tender
Musculoskeletal: No Clubbing and No Cyanosis
Skin: Dry
Neuro: AO x 3 and Slurred Speech
Psych: Calm
Laboratory Results
-
02/01/25 11:00
02/01/25 11:00
Laboratory Results
PT 13.3 Sec (11.4-14.6) 02/01/25 11:00
INR 0.96 02/01/25 11:00
Lactic Acid Cancelled 02/01/25 15:00
Total Bilirubin 1.2 mg/dl (0.2-1.3) 02/01/25 11:00
AST 18 U/L (14-36) 02/01/25 11:00
ALT < 10 U/L (0-35) 02/01/25 11:00
Alkaline Phosphatase 67 U/L (38-126) 02/01/25 11:00
Impression/Plan
-
79-year-old female presents to the emergency department from [facility] for evaluation of lethargy and fever.
#Sepsis secondary to UTI
-Urinalysis showed bacterial infection
-chest-Xray was normal , excluded chest infection
-IV fluids
-Continue IV Ceftriaxone 1000mg
-CT abd and pelvis to rule out obstructive uropathy
-Follow blood and urine culture
-In and output monitor
#Altered in mental status
-Patient has Parkinson dementia as a baseline and per [facility] and her daughter she is a coherent person at her baseline.
-Altered in mental status likely related to dehydration and sepsis secondary to urinary infection
-CT scan of the head showed no acute abnormalities
-NephroCheck
#Hypertension
-Has a hx of HTN
-continue carvedilol 12.5 mg PO BID
-Hydralazine 10 mg IV PRN if bl.pr >160/100
-Monitor blood pr.
[2025-02-01] MEDS: APRESOLINE 10 MG IV (17:53)
[2025-02-01] MEDS: FLUSH (NSS) 1 FLUSH IV (17:53)
--- NOTE | 2025-02-01 20:31 | PTCARENOTE ---
Rn food services coordinator- Completed nursing admission assessment via phone interview with Nursing keypunch operators supervisor at [facility].
[2025-02-01] MEDS: LOVENOX 40 MG SC (20:34)
[2025-02-01] MEDS: NSS (PRESERVATIVE FREE) 10 ML IV (20:35)
[2025-02-01] MEDS: PROTONIX IV 40 MG IV (20:35)
[2025-02-01 20:45] LABS: Amylase 47 U/L (30-110)
--- NOTE | 2025-02-01 21:58 | PTCARENOTE ---
received pt from ED at 2014. pt pulled over from stretcher to bed. pt very lethargic, arousable to name. pt oriented to self only. Pt BP 180s/100s, PRN hydralazine not due until 2352, AUTOMATION/CONTROLS MANAGER rehab consultant made aware. pt offers no current complaints and
appears comfortable in bed. plan on care ongoing.
[2025-02-01 22:48] LABS: Urine Character Clear (Clear)
[2025-02-01 22:55] LABS: Urine Red Blood Cell 16-20 /HPF (0-2); Urine Squamous Cell 0-2 /LPF (Few)
[2025-02-01 22:56] LABS: Urine White Cell 60-70 /HPF (0-5)
[2025-02-02] VITALS (8 sets, daily range): BP systolic 115–187; BP diastolic 71–110; BMI 27.5
--- NOTE | 2025-02-02 00:10 | PTCARENOTE ---
phone report given to ISATU Ramos for pt to be transferred to [address] [place] [address] [id number]. pts belongings gathered and transferred with pt via bed.
[2025-02-02] MEDS: APRESOLINE 10 MG IV ×5 (00:14→23:08)
--- NOTE | 2025-02-02 00:22 | W.PN.UPDATE ---
Update Note
Progress Note Update
Per nursing staff patient complained of sob, BP 164/106 hr 85, SPO2 97% On 2 L of O2.
On exam patient looks comfortable, patient is unable to communicate duo to change of mental status (base line from admission )
-No wheezing or crackle noted during chest exam.
-Patient is neg covid/ flu on admission and chest x-ray result noted.
-Duo nebs PRN
-VBG cbc, bmp, mag, troponin and Pro BNP.
-Troponin 0.037 will tend
-Ekg with NSR
[2025-02-02] MEDS: DUONEB 3 ML INH (00:42)
[2025-02-02 01:24] LABS: Hematocrit 39.8 % (37.0-47.0); Hemoglobin 13.1 g/dL (12.0-16.0); Mean Corp Hgb Conc. 32.9 g/dL (33.0-37.0); Mean Corpuscular Volume 89.8 fL (81.0-99.0); Platelet Count 176 10^3/uL (130-400); Red Cell Dist. Width 12.4 % (11.5-14.5)
[2025-02-02 01:25] LABS: Venous Blood Gas B.E. 0.1 mmol/L (-4 to +4); Venous Blood Gas O2 Sat % 100.0 %; Venous Blood Gas O2 Therapy ROOM AIR
[2025-02-02 01:41] LABS: Blood Urea Nitrogen 11 mg/dl (7-17); Calcium 8.5 mg/dl (8.4-10.2); Carbon Dioxide 25 mmol/L (22-30); Chloride 116 mmol/L (98-107); Estimated Creatinine Clearance 77 ml/min; Glucose 96 mg/dl (70-99); Magnesium 1.9 mg/dl (1.6-2.3); Potassium 3.5 mmol/L (3.5-5.1); Sodium 144 mmol/L (135-145); eGFR > 60.00
[2025-02-02 02:01] LABS: Troponin I 0.037 ng/ml
[2025-02-02 06:55] LABS: Hematocrit 38.3 % (37.0-47.0); Hemoglobin 12.9 g/dL (12.0-16.0); Mean Corp Hgb Conc. 33.7 g/dL (33.0-37.0); Mean Corpuscular Volume 91.4 fL (81.0-99.0); Platelet Count 185 10^3/uL (130-400); Red Cell Dist. Width 12.5 % (11.5-14.5)
[2025-02-02 07:23] LABS: Troponin I 0.042 ng/ml
[2025-02-02 07:37] LABS: Lipase 68 U/L (23-300)
[2025-02-02] MEDS: NSS 1000 IV ×2 (07:42→17:05)
[2025-02-02] MEDS: NSS (PRESERVATIVE FREE) 10 ML IV (07:42)
[2025-02-02] MEDS: PROTONIX IV 40 MG IV (07:42)
[2025-02-02 07:52] LABS: ALT (SGPT) 22 U/L (0-35); AST (SGOT) 26 U/L (14-36); Albumin 3.5 g/dl (3.5-5.0); Alkaline Phosphatase 63 U/L (38-126); Blood Urea Nitrogen 11 mg/dl (7-17); Calcium 9.1 mg/dl (8.4-10.2); Carbon Dioxide 23 mmol/L (22-30); Chloride 115 mmol/L (98-107); Estimated Creatinine Clearance 77 ml/min; Glucose 92 mg/dl (70-99); Potassium 3.8 mmol/L (3.5-5.1); Sodium 144 mmol/L (135-145); Total Protein 5.9 g/dl (6.3-8.2); eGFR > 60.00
--- NOTE | 2025-02-02 10:54 | W.PN.HOSP.TC ---
Today's Communication/Plan
-
Chest x ray for difficulty breathing
Speech therapist evaluation
IDDSI 5MINCED AND MOIST , THIN LIQUID DIETS
Video swallow ordered to rule out silent aspiration
ABGS ordered
pulmonology consulted
neubulizer for difficulty breathing
Assessment / Plan
Assessment / Plan
Impression:
79-year-old female with PMH of HTN,Parkinson's disease, chronic back pain, overactive bladder, depression PAD, sleep apnea with occasional CPAP use, restless leg syndrome, multiple UTIs. Presented to the ED from the nursing facility with fever and
lethargy, shortness of breath , abdominal pain and altered in mental status.
Assessment and Plans:
#Sepsis secondary to UTI
-Urinalysis showed bacterial infection
-chest-Xray 02/01 normal , excluded chest infection
-Chest Xray 2024 for difficulty breathing showed small patchy opacity in the right midlung, possibly representing atelectasis or a mild pneumonitis.
-Abdominal US 02/02/2025:no evidence for cholelithiasis. No findings to suggest acute cholecystitis.Small hypoechoic focus in the head of the pancreas. Possible pseudocyst or cystic pancreatic neoplasm.
-WBC normal , trop 0.037--->0.042 today EKG normal
-ABGS : PCO2 38, O2 SAT 98.8
-Pulmonary consulted
-IV fluids
-Continue IV Ceftriaxone 1000mg
-CT abd and pelvis: Distended gallbladder, Hepatic cyst, Large hiatal hernia, Bilateral parapelvic renal cysts, Cystic pancreatic head mass
-Follow blood and urine culture
-In and output monitor
-speech consulted
-NPO --> IDDSI 5MINCED AND MOIST , THIN LIQUID DIETS
-Video swallow ordered to rule out silent aspiration
#Altered in mental status
-Patient has Parkinson dementia as a baseline and per senior care and her daughter she is a coherent person at her baseline.
-Altered in mental status likely related to dehydration and sepsis secondary to urinary infection
-CT scan of the head showed no acute abnormalities
-NephroCheck
#Hypertension
-Has a hx of HTN
-continue carvedilol 12.5 mg PO BID
-Hydralazine 10 mg IV PRN if bl.pr >160/100
-Monitor blood pr.
DVT prophylaxis
COD: DNR , DNI
Anticipated Discharge: > 48 hours
Subjective/Interval History
-
Date of Service: February 02, 2025
Patient was not cooperative answering the question and was confused. Had trouble breathing yesterday night and nebulizer was given and her breathing improved.
Objective Data
-
Labs:
Laboratory Results
02/02/25 02/02/25 02/02/25
01:10 06:35 10:53
WBC 9.4 8.4
Hgb 13.1 12.9
Hct 39.8 38.3
Plt Count 176 185
HCO3 Pending
Sodium 144 144
Potassium 3.5 3.8
Chloride 116 H 115 H
Carbon Dioxide 25 23
BUN 11 11
Creatinine 0.6 0.6
Glucose 96 92
Calcium 8.5 9.1
Total Bilirubin 1.0
AST 26
ALT 22
Alkaline Phosphatase 63
Vital Signs:
Vital Signs
Temp Pulse Resp BP Pulse Ox
99.1 F 81 18 115/71 95
02/02/25 07:16 02/02/25 07:16 02/02/25 07:16 02/02/25 07:16 02/02/25 08:00
I&O
02/01/25 02/02/25 02/03/25
06:59 06:59 06:59
Intake Total 760 / 760
Output Total 575 / 575
Balance 185 / 185
Review of Systems
-
Unable to obtain full review of systems at this time due to: Dementia
History Source: Other (nurse)
Respiratory: Reports Trouble Breathing
Physical Exam
-
General: Respiratory Distress
Respiratory: Clear to Auscultation
Cardiac: Regular Rhythm and S1/S2
GI: Soft and Nontender
Musculoskeletal: No Clubbing, No Cyanosis and Other (bilateral leg edema)
Skin: Warm and Dry
Neuro: Slurred Speech
[2025-02-02 11:05] LABS: B.E. 1.0 mmol/L; HCO3 25.2 mmol/L (21-28); O2 Saturation % 98.8 % (94-98); PCO2 38 mmHg (32-35); PO2 97 mmHg (83-108)
--- NOTE | 2025-02-02 11:33 | CON.PUL ---
Consultation
Consultation Request
Date/Time Consultation Requested: 02/02/2025
Date/Time Consultation Performed: 02/02/2025
Requesting Provider: Dr. Marcelino
Performing Provider: Dr. Khoa Overton
Reason for Consultation: Hypoxemic respiratory failure/sepsis
Medical History
-
Chief Complaint: Hypoxemia
History of Present Illness:
79-year-old female with past medical history significant for hypertension, Parkinson disease, chronic back pain, overactive bladder, depression, peripheral arterial disease, obstructive sleep apnea occasionally using CPAP, restless leg syndrome,
history of multiple UTIs. Presented to the emergency room from the nursing facility with fever, lethargy and shortness of breath. Found to be hypoxemic as well.
Due to her mental status she was not able to provide history. Records were reviewed.
Per family patient usually communicates and is responsive, ambulates with a walker. She is found to be very lethargic.
Patient does have chronic suprapubic catheter exchanged in the emergency room.
Chest x-ray was negative for abnormalities. CT head without acute abnormalities. UA not consistent with UTI.
Patient is DNR status
We were consulted on 02/02/2025 for evaluation of hypoxemia and shortness of breath.
Past Medical History
Past Medical History: Other (See assessment and plan)
Social History
Tobacco: Non-smoker (From records)
Alcohol: None
Drug: None
Living: Other (Long-term living facility)
Occupational Exposures: Unknown
Environmental Exposures: Unknown
Family History
Family History: Unable to Obtain
Allergies / Home Medications
Allergies
Allergy/AdvReac Type Severity Reaction Status Date / Time
house dust Allergy sneezing, Verified 02/01/25 17:42
watery eyes
mold Allergy sneezing, Verified 02/01/25 17:42
watery eyes
pollen extracts Allergy sneezing, Verified 02/01/25 17:42
watery eyes
Home Medications
�Medication �Instructions �Recorded �Confirmed �Last Taken �Type
acetaminophen 325 mg tablet 650 mg PO Q4HPRN PRN mild 03/26/23 02/01/25 Unknown History
pain/fever>100.4
acetaminophen 650 mg 650 mg PO BID Pain 03/26/23 02/01/25 09/02/24 08:30 History
tablet,extended release
bisacodyl 10 mg rectal suppository 10 mg [place] DAILYPRN PRN no BM when 03/26/23 02/01/25 Unknown History
(Dulcolax (bisacodyl)) MOM is ineffective
carbidopa 25 mg-levodopa 100 mg 2 tab PO DAILY@0830 PARKINSON 03/26/23 02/01/25 09/02/24 08:30 History
tablet
peg 400-propylene glycol 0.4 %-0.3 1 drp BOTH EYES TID Eye Condition 03/26/23 02/01/25 09/02/24 08:30 History
% eye drops (Systane (propylene
glycol))
ropinirole 2 mg tablet 2 mg PO TID@1230,0230,2030 03/26/23 02/01/25 09/02/24 02:30 History
PARKINSON
carvedilol 12.5 mg tablet 12.5 mg PO BID Blood Pressure 08/28/23 02/01/25 09/02/24 08:30 History
ascorbic acid (vitamin C) 500 mg 500 mg PO BID Supplement 08/29/24 02/01/25 Unknown History
tablet (Vitamin C)
carbidopa 25 mg-levodopa 100 mg 1.5 tab PO BID@1300,1700 PARKINSON 08/29/24 02/01/25 09/02/24 08:30 History
tablet
estradiol 0.01% (0.1 mg/gram) 1 g vaginal MOTH@2000 HORMONE 08/29/24 02/01/25 Unknown History
vaginal cream
magnesium hydroxide 400 mg/5 mL 2,400 mg PO HSPRN PRN constipation 02/01/25 02/01/25 Unknown History
oral suspension (Milk of Magnesia)
mirtazapine 15 mg tablet 15 mg PO HS Mental Health/Anxiety 02/01/25 02/01/25 Unknown History
ropinirole 0.5 mg tablet 0.5 mg PO DAILY@1700 PARKINSON 02/01/25 02/01/25 Unknown History
tramadol 50 mg tablet 50 mg PO Q6HPRN PRN moderate pain 02/01/25 02/01/25 Unknown History
Review of Systems
Vitals / Labs / Diagnostic Testing
Vital Signs
Temp Pulse Resp BP Pulse Ox
98.7 F 82 20 190/110 97
02/02/25 11:18 02/02/25 11:18 02/02/25 11:18 02/02/25 11:20 02/02/25 11:18
Lab Data
02/02/25 06:35
02/02/25 06:35
Laboratory Results
02/01/25 02/02/25
11:00 10:53
PT 13.3
INR 0.96
pH 7.43
pCO2 38 H
pO2 97
HCO3 25.2
O2 Delivery Level
Microbiology
02/01/25 11:00 Blood/Venous Blood Culture - Preliminary
No Growth in 24 hours- Final report to follow
02/01/25 14:52 Urine Urine Culture - Preliminary
02/01/25 11:00 Nasal Swab Influenza Types A & B (BLADIMIR) - Final
Negative for Influenza A & B, NAAT
Negative results must be combined with clinical observations
and patient history.
Nucleic Acid Amplification test (NAAT)performed on the
[employer] platform.
Diagnostic Testing:
Physical Exam
-
HEENT: Normocephalic
Cardiovascular: S1/S2
Respiratory: Clear and Non-Labored Respirations
GI: Soft and Non Distended
Neurology: Awake, Alert, No Motor Deficits, Other (Following commands) and Other (Excellent cough effort on demand)
General: Comfortable
Assessment
-
79-year-old woman with past medical history noted, admitted with change in mental status/lethargy, mild hypoxemia and shortness of breath from her nursing facility. Apparently usually ambulates with a walker, she is talkative, able to converse.
Due to mild hypoxemia were consulted for evaluation.
Hypoxemic respiratory failure currently on 2 L supplemental oxygen.
Chest x-ray: 02/02/2025-no acute abnormality- Minimal right midlung patchy abnormality.
CT abdomen pelvis lung cuts: Bibasilar atelectatic changes mild: Large hiatal hernia
ABG 02/02/2025: 7.43/38/97 on room air
Normal renal function/normal electrolytes
Cannot rule out UTI-suprapubic catheter in place-difficult to interpret urinalysis
Toxic metabolic ibtnaetsrcwvhu-dzivriag-lyshzrbg hypoactive delirium
CT head reviewed: No acute abnormalities.
Mild troponin leak-likely non-MA. Will need to be followed
Conditions present prior admission:
Hypertension
Parkinson disease/dementia
Multiple UTIs
Depression
Suprapubic catheter
Restless leg syndrome
Obstructive sleep apnea occasional CPAP
Peripheral arterial disease
Chronic back pain
Overactive bladder
Prior lumbar laminectomy
Right shoulder surgery
Assessment and plan:
-
To my evaluation her mental status is improved. Following commands. Has a strong cough effort.
Taking deep breaths.
Denies shortness of breath.
On 2 L of supplemental oxygen.
-
From the pulmonary perspective: Chest x-ray is not impressive. Minimal left-sided patchy abnormality atelectasis versus possible pneumonitis.
Cannot rule out aspiration event but patient unable to provide history at this point.
CT abdomen pelvis lung cuts with atelectatic changes-likely due to hypoventilation from lethargy.
Lethargy with hypoventilation can explain hypoxemia.
Avoid sedatives
Head of the bed elevation
Incentive spirometry if patient able to do it.
Will keep n.p.o. until mental status improves
-
Mild troponin leak-unclear etiology-patient denies any chest pain or shortness of breath on my evaluation 02/02/2025 11:50 AM.
EKG nonischemic
Trend troponins.
Will start with echocardiogram first
If there is worsening hypoxemia or worsening respiratory compromise a CT of the chest PE protocol will be helpful hold for now my suspicion not very high.=-
Continue folding machine operator
-
Toxic metabolic encephalopathy suspected-clinically improved. Waxing and waning but to my evaluation appears to be appropriate.
Likely hypoactive delirium-I do suspect possibility of urinary infection
UA with bacteria and white blood cells, positive leukocyte esterase-difficult to interpret in the setting of suprapubic catheter
Agree with antibiotics for now cultures are pending
-
Will continue to follow along with you.
--- NOTE | 2025-02-02 11:36 | CM ---
CM following re: discharge planning.
Reviewed pt's chart, met with pt.
Pt is a 79 year old female, admitted with primary dx of Sepsis secondary to UTI. PMH of HTN,Parkinson's disease, chronic back pain, overactive bladder, depression PAD, sleep apnea with occasional CPAP use, restless leg syndrome, multiple UTIs.
Pt is not a great historian. Per [facility] educational resource coordinator, pt is a terminal manager care resident at [facility], on Medicaid 15 day bed hold, has 2 supportive children, daughter Lucille has POA. At baseline, pt requires assistance of 1 with ADL, propels
herself on a w/c, can walk with a walker with assistance. in the past 2 weeks pt has been requiring more assistance and staff was using a Bob lift for transfer.
D/C plan: return back to [facility] for a terminal manager care.
CM will follow with discharge plan updates as hospitalization progresses
--- NOTE | 2025-02-02 11:39 | W.PN.UPDATE ---
Update Note
Progress Note Update
79 female history of parkinsonian syndrome with concern of multiple system atrophy, dementia, hypertension, BETINA who presented from [facility] with failure to thrive and lethargy.
While in the ED noted to have a temp of 100.5, iv aceatminophen provided, spt exchnaged, wbc 9.8, bp 170's, cr/bun 0.7/60. isotonic saline x2l provided along with ctx. CTBrain wihtout acute evidence.
Acute hypoxic respiratory failure with RR >30
Wean o2 as tolerated
Check cxr
Nebs
Would consider hypertonic saline nebs but concerned if thinning mucous and aspiration risk
Aspiration precautions
Speech consult
Acute TME vs progressive dementia
DDx: dehydration related to FTT vs UTI
IVF
Follow up UA and UCx
Sepsis (Temp >100.4/RR >20), source ?
Would check a CTAP with con to be sure we are not missing any other potential sources of sepsis
UA and UCx
IV Atb
Bcx
CTAP showing gallbladder distention/?hydrops
-Follow up with Ultrasound
Parkinsons
Conitnue carbidopa-levodopa
RLS
Continue ropinirole
HTN
Continue antihypertensives
--- NOTE | 2025-02-02 12:07 | PTOTSP ---
ADMITTING MANAGER Swallow Evaluation
Patient presents with signs concerning for chronic oral dysphagia related to known Parkinson's disease. Patient is at an acute elevated risk for dysphagia given waxing/waning mental status and level of alertness with sepsis secondary to UTI. CXR
02/02 with concern for right sided PNA. Consider instrumental swallow testing to r/o silent aspiration as appropriate.
Recommend:
1. IDDSI 5 Minced/Moist, Thin liquids
2. Medications: as best tolerated
3. Strategies: PO only when awake/alert, 1:1 supervision/assist, single sips/bites, slow rate, ensure patient swallows vbefore next sip/bite, alternate solids and liquids, check for oral pocketing , remain upright 30 minutes after meal
4. Consider video swallow study
[2025-02-02] MEDS: ROCEPHIN 1000 MG IV (13:05)
[2025-02-02] MEDS: STERILE WATER FOR INJECTION 10 ML IV (13:05)
[2025-02-02] MEDS: VALIUM INJECTION 2 MG IV (13:38)
[2025-02-02 13:50] LABS: Troponin I 0.041 ng/ml
--- NOTE | 2025-02-02 13:55 | PTCARENOTE ---
Addendum entered by Jesusita Magallon RN 02/02/25 15:04:
This RN clarified stat dose of IV Valium prior to admin, okay to give with IV hydralazine per resident. BP rechecked at 1500 159/92 HR 83, patient somnolent and hard to rouse after IV Valium, rouses with sternal rub before falling back asleep. POX
98% on 2L, ax temp 98.3F, IVF infusing through R FA. Patient placed on tele for cont POX, NSR on monitor. MD and resident made aware of BP results and patient's mentation, made aware of small R sided facial droop on assessment again, no new orders
at this time.
Original Note:
Patient lethargic, wakes to verbal/tactile stimuli and with care before quickly falling back asleep, AAOX2 when awake, denies any specific concerns other than orthopnea, POX 97% on 2L. Patient cleared for diet per speech, for VSE in AM. BP taken by
tech at 1100 184/105 HR 82 RUE, manual taken by this RN 190/110. PRN IV hydralazine administered, MD and resident made aware. Repeat automatic BP at 1300 187/89 RUE, patient lethargic but waking with care, denies any concerns. MD and resident made
aware, stat doses of PRN IV Valium and hydralazine ordered - see JUL. CXR, ABG, and Abd US completed this AM, echo ordered per pulm.
Patient with mild R sided facial droop noted on assessment this AM by this RN and resp therapist Brenda; neuro check performed by this RN WNL, daughter at bedside stating she feels patient's smile is at baseline. MD and resident aware, no new orders.
--- NOTE | 2025-02-02 16:11 | PN.CDI ---
CDI
- -
CDI:
Physician Documentation Request
Admit Date: 02/01/25 16:20
Dear Doctor Geronimo,
Progress notes include a diagnosis of sepsis.
Patient's presenting temp was 100.5 , heart rates 70s-80s , respiratory rate 16-32
WBCs
Laboratory Tests
02/01/25 02/02/25
11:00 01:10
WBC 9.4 9.4
Recognized standard criteria for this condition:
�Sepsis
-Systemic manifestations of infection, with 2 or more SIRS criteria which include:
-Fever > 100.9 F or hypothermia < 96.8 F
-Leukocytosis WBC > 12,000 or leukopenia, WBC < 4,000, or > 10% bands
-Tachycardia- > 90 beats/minute
-Tachypnea- RR > 20 breaths/minute or PaCO2 < 32mmHg
Source: Merck Manual 2013
-Documentation should include the known or suspected organism, and the underlying infection, such as UTI or pneumonia
Based on the above information and the recognized standard SIRS criteria, please clarify if sepsis is still an accurate diagnosis, and reflective of the patient�s condition, to ensure quality of the medical record.
Please clarify in the Progress Notes:
�Sepsis is/was present and is a clinical diagnosis based on (please include this additional support in the medical record)
�After study sepsis has been ruled out
�Other
Use of terms such as suspected, likely, concern for, or probable (associated with a specific diagnosis that is being evaluated, monitored, or treated as if it exists) are acceptable and can be coded in the inpatient setting, when documented at the
time of discharge.
Thank you,
Duyen Phoenix RN, BSN
CDI Specialist
tiger text
Please use your independent medical judgment in providing your response.
[2025-02-02] MEDS: LOVENOX 40 MG SC (17:05)
[2025-02-02] MEDS: TYLENOL/FEVERALL 650 MG RECTAL (17:56)
--- NOTE | 2025-02-02 18:03 | PTCARENOTE ---
Patient warm, face flushed on assessment, lethargic, rouses briefly to tactile stimuli before falling back asleep. Ax temp 99.2F, oral temp 100.4F, rectal temp 100.9F. BP 140/79 RUE, HR 80s NSR on monitor, 98% 2L. MD made aware of patient's temp and
mentation, rectal Tylenol ordered per MD and administered by this RN - see MAR. IVF infusing through R FA, SCDs in place, suprapubic draining yellow urine.
[2025-02-02 19:15] LABS: Troponin I 0.047 ng/ml
[2025-02-02] MEDS: ULTRAM 50 MG PO (23:36)
[2025-02-03 03:27] VITALS: BP 187/103
[2025-02-03] MEDS: NSS 1000 IV ×2 (03:27→12:23)
[2025-02-03] MEDS: TYLENOL 650 MG PO (03:28)
[2025-02-03] MEDS: APRESOLINE 10 MG IV (03:53)
[2025-02-03 04:18] VITALS: BP 155/84
[2025-02-03 06:13] VITALS: BMI 28.1
[2025-02-03 07:01] VITALS: BP 182/94
[2025-02-03] MEDS: NSS (PRESERVATIVE FREE) 10 ML IV (07:59)
[2025-02-03] MEDS: PROTONIX IV 40 MG IV (08:00)
[2025-02-03 08:08] LABS: Hematocrit 39.0 % (37.0-47.0); Hemoglobin 12.9 g/dL (12.0-16.0); Mean Corp Hgb Conc. 33.1 g/dL (33.0-37.0); Mean Corpuscular Volume 91.3 fL (81.0-99.0); Nucleated Red Blood Cells % 0 %; Platelet Count 186 10^3/uL (130-400); Red Cell Dist. Width 12.5 % (11.5-14.5)
[2025-02-03 08:44] LABS: ALT (SGPT) 22 U/L (0-35); AST (SGOT) 32 U/L (14-36); Albumin 3.3 g/dl (3.5-5.0); Alkaline Phosphatase 65 U/L (38-126); Blood Urea Nitrogen 10 mg/dl (7-17); Calcium 8.5 mg/dl (8.4-10.2); Carbon Dioxide 24 mmol/L (22-30); Chloride 112 mmol/L (98-107); Estimated Creatinine Clearance 86 ml/min; Glucose 100 mg/dl (70-99); Potassium 3.3 mmol/L (3.5-5.1); Sodium 141 mmol/L (135-145); Total Protein 5.6 g/dl (6.3-8.2); eGFR > 60.00
--- NOTE | 2025-02-03 09:02 | W.PN.HOSP.TC ---
Addendum entered and electronically signed by Vamshi Marcelino MD 02/04/25 15:02:
see update note
Original Note:
Today's Communication/Plan
-
K 3.3, repleted
SVS , Passed
Advanced the diet to IDDSI 6 soft and bite size
pulmonary consulted
peripheral venous US showed no DVT
PT/OT
patient's daughter contacted and informed about the discharge
case packer contacted to arrange for transportation
Discharged home on Doxycycline 200 mg BID for 5 days
Assessment / Plan
Assessment / Plan
Impression:
79-year-old female with PMH of HTN,Parkinson's disease, chronic back pain, overactive bladder, depression PAD, sleep apnea with occasional CPAP use, restless leg syndrome, multiple UTIs. Presented to the ED from the nursing facility with fever and
lethargy, shortness of breath , abdominal pain and altered in mental status.
Assessment and Plans:
#Sepsis
-Temp (>100.4/RR >20)
- less likely to UTI ( suprapubic catheter in place-difficult to interpret urinalysis) and likely to bronchitis?
-chest-Xray 02/01 ecluded chest infection
-Chest Xray 2024 for difficulty breathing showed small patchy opacity in the right midlung, possibly representing atelectasis or a mild pneumonitis.
-Abdominal US 02/02/2025:no evidence for cholelithiasis. No findings to suggest acute cholecystitis.Small hypoechoic focus in the head of the pancreas. Possible pseudocyst or cystic pancreatic neoplasm.
-WBC normal , trop 0.037--->0.042-->0.47 today EKG normal, non ischemic myocardiac injury, likely due to high blood pr. , ECHO no wall motion abnormalities
-ABGS : PCO2 38, O2 SAT 98.8
-Pulmonary consulted
-IV fluids
-K 3.3 , repleted
-Continue IV Ceftriaxone 1000mg
-CT abd and pelvis: Distended gallbladder, Hepatic cyst, Large hiatal hernia, Bilateral parapelvic renal cysts, Cystic pancreatic head mass
-Follow blood and urine culture
-In and output monitor
-speech consulted
- IDDSI 6 soft and bite size sold with thin liquids
-Video swallow ordered today to rule out aspiration and results showed no aspiration, recommended IDDSI 6 soft and bite size sold with thin liquids
#Acute hypoxic respiratory failure
-RR >30, likely aspiration/pneumonitis
-Lethargy with hypoventilation can explain hypoxemia.
-Wean o2 as tolerated
-Continue Nebs
-Aspiration precautions
-Speech IDDSI5 advanced to IDDSI6, VSE passed
-Incentive spirometry if patient able to do it
-Avoid sedative
-patient is off O2 today
-discharge home on PO doxycycline for 5 days for aspiration bronchitis
-ECHO of heart showed mildly elevated estimated PASP at 40 mmHg and US Periph Venous to exclude DVT and was negative for thrombus
#Acute Toxic metabolic encephalopathy
-Likely hypoactive delirium.improved today , patient back to baseline mental status today
-Patient has Parkinson dementia as a baseline and per jail and her daughter she is a coherent person at her baseline.
-Altered in mental status likely related to dehydration related to failure to thrive vs urinary infection
-CT scan of the head showed no acute abnormalities
-NephroCheck no focal neurological deficits
-Urine culture without significant growth. 02/01/2025
-UA with bacteria and white blood cells, positive leukocyte esterase-difficult to interpret in the setting of suprapubic catheter
-Blood culture negative
-Currently on ceftriaxone
#Hypertension
-Has a hx of HTN
-continue carvedilol 12.5 mg PO BID
-Hydralazine 10 mg IV PRN if bl.pr >160/100
-Monitor blood pr.
Daughter updated
Off of O2, breathing improved, afebrile no white count
DVT study pending
Likely able to DC home today on Doxy x5days
DVT prophylaxis
COD: DNR , DNI
Anticipated Discharge: Today
Subjective/Interval History
-
Date of Service: February 03, 2025
patient is awake and oriented x3. Patient was communicating and followed commands and answered questions. No SOB, chest pain, abd pain, nausea, vomiting, fever,chills.
Objective Data
-
Labs:
Laboratory Results
02/03/25
07:47
WBC 7.6
Hgb 12.9
Hct 39.0
Plt Count 186
Sodium 141
Potassium 3.3 L
Chloride 112 H
Carbon Dioxide 24
BUN 10
Creatinine 0.6
Glucose 100 H
Calcium 8.5
Total Bilirubin 0.9
AST 32
ALT 22
Alkaline Phosphatase 65
Vital Signs:
Vital Signs
Temp Pulse Resp BP Pulse Ox
98.6 F 87 16 182/94 96
02/03/25 07:01 02/03/25 07:01 02/03/25 07:01 02/03/25 07:01 02/03/25 07:01
I&O
02/02/25 02/03/25 02/04/25
06:59 06:59 06:59
Intake Total 760 / 760 1680 / 1680
Output Total 575 / 575 950 / 950
Balance 185 / 185 730 / 730
Review of Systems
-
History Source: Patient
All other systems: Reviewed and negative
Physical Exam
-
General: Well Developed, Well Nourished and Comfortable
HEENT: Normocephalic and Atraumatic
Respiratory: Clear to Auscultation
Cardiac: Regular Rhythm and S1/S2
GI: Soft and Nontender
Musculoskeletal: No Clubbing and No Cyanosis
Neuro: Awake, Alert, Oriented and AO x 3
[2025-02-03 09:56] LABS: Glucose - Point of Care 116 mg/dl (70-99)
--- NOTE | 2025-02-03 10:03 | PN.CDI ---
CDI
- -
CDI:
Physician Documentation Request
Admit Date: 02/01/25 16:20
Dear Doctor Geronimo,
Patient presented to the ED complaining of lethargy and fever.
Troponin results:
Laboratory Tests
02/02/25 02/02/25 02/02/25
01:10 06:35 13:09
Troponin I 0.037 H* 0.042 H* 0.041 H*
02/02/25
18:41
Troponin I 0.047 H*
Could you please provide a diagnosis that supports the above lab abnormalities and additional evaluation/monitoring:
Non ischemic myocardial injury
Type II VT demand ischemia
Other
Use of terms such as suspected, likely, concern for, or probable (associated with a specific diagnosis that is being evaluated, monitored, or treated as if it exists) are acceptable and can be coded in the inpatient setting, when documented at the
time of discharge.
Thank you,
Duyen Phoenix RN, BSN
CDI Specialist
tiger text
Please use your independent medical judgment in providing your response.
[2025-02-03] MEDS: KCL 270 MEQ IV (10:14)
[2025-02-03] MEDS: COREG 12.5 MG PO (10:16)
--- NOTE | 2025-02-03 10:17 | W.PN.PUL3 ---
Today's Communication / Plan
-
Will get lower extremity Dopplers
If hypoxemia continues then CT angiogram of the chest will be necessary given mild troponin leak and mild pulmonary hypertension on echo.
Continue nebulizers as needed for secretion clearance
Incentive spirometer
Aspiration precaution
Video swallow evaluation pending
If no other infectious site found may treat for aspiration bronchitis doxycycline for 5 days.
If lower extremity Dopplers negative okay to discharge from my perspective.
Assessment
-
79-year-old woman with past medical history noted, admitted with change in mental status/lethargy, mild hypoxemia and shortness of breath from her nursing facility. Apparently usually ambulates with a walker, she is talkative, able to converse.
Due to mild hypoxemia were consulted for evaluation.
Hypoxemic respiratory failure currently on 2 L supplemental oxygen.
Chest x-ray: 02/02/2025-no acute abnormality- Minimal right midlung patchy abnormality.
CT abdomen pelvis lung cuts: Bibasilar atelectatic changes mild: Large hiatal hernia
ABG 02/02/2025: 7.43/38/97 on room air
Normal renal function/normal electrolytes
Cannot rule out UTI-suprapubic catheter in place-difficult to interpret urinalysis
Toxic metabolic qawondupfqzvhk-[id number]-[id number] hypoactive delirium
CT head reviewed: No acute abnormalities.
Mild troponin leak-likely non-TX. Will need to be followed
Conditions present prior admission:
Hypertension
Parkinson disease/dementia-?multiple system atrophy, dementia,
Multiple UTIs
Depression
Suprapubic catheter
Restless leg syndrome
Obstructive sleep apnea occasional CPAP
Peripheral arterial disease
Chronic back pain
Overactive bladder
Prior lumbar laminectomy
Right shoulder surgery
Assessment and plan:
-
To my evaluation her mental status is improved. Following commands. Has a strong cough effort.
Taking deep breaths.
Denies shortness of breath.
On 2 L of supplemental oxygen.
-
From the pulmonary perspective: Chest x-ray is not impressive. Minimal left-sided patchy abnormality atelectasis versus possible pneumonitis.
Cannot rule out aspiration event but patient unable to provide history at this point.
CT abdomen pelvis lung cuts with atelectatic changes-likely due to hypoventilation from lethargy.
Lethargy with hypoventilation can explain hypoxemia.
Avoid sedatives
Head of the bed elevation
Incentive spirometry if patient able to do it.
Diet advanced to modified.
VSE performed today 02/03/2025-pending
-
Mild troponin leak-unclear etiology-patient denies any chest pain or shortness of breath on my evaluation 02/02/2025 11:50 AM.
Echocardiogram 02/02/2025. Normal LVEF. No motion wall abnormalities.Normal RV function.Mildly elevated pulmonary pressures.
EKG nonischemic
Not tachycardic
Hemodynamically stable
Denies chest pain
proBNP 1850-moderately increased.
Mildly positive-Have not cleared completely. Not significantly elevating.
Will obtain lower extremity ultrasounds rule out DVT.
-
If there is worsening hypoxemia or worsening respiratory compromise a CT of the chest PE protocol will be helpful hold for now my suspicion not very high.
Continue engine monitor- Sinus
-
Not bronchospastic on exam.
Nebulizers as needed for secretion clearance
Incentive spirometry if able
Continue with aspiration precautions
-
Toxic metabolic encephalopathy suspected-clinically improved.
Likely hypoactive delirium.
Urine culture without significant growth. 02/01/2025
UA with bacteria and white blood cells, positive leukocyte esterase-difficult to interpret in the setting of suprapubic catheter
Blood culture negative
Currently on ceftriaxone
Not unreasonable to treat for aspiration bronchitis 5 days May use doxycycline If there is no other infectious site found
-
Discussed with primary team, if lower extremity Dopplers negative okay to discharge from my perspective.
Data reviewed:
Echocardiogram 02/02/2025:
1. Normal biventricular size and function without regional wall motion abnormalities.
2. LVEF is 55-60% by Fernandez's biplane method of discs.
3. Mild aortic stenosis, mean gradient 17 mmHg.
4. Mildly elevated estimated PASP at 40 mmHg.
5. Compared to prior from September 14, 2020, there is new mild aortic stenosis.
Subjective Data
-
Date of Service:
Date of Service: February 03, 2025
Chief Complaint: Pulmonary Follow Up (Acute bronchitis)
Subjective:
Patient denies respiratory complaints other than coughing
Denies shortness of breath at rest
Objective Data
Data Reviewed
Vital Signs / I&O / Oxygen:
Vital Signs
Temp Pulse Resp BP Pulse Ox
98.6 F 87 16 182/94 96
02/03/25 07:01 02/03/25 07:01 02/03/25 07:01 02/03/25 07:01 02/03/25 07:01
Intake and Output
02/02/25 02/03/25 02/04/25
06:59 06:59 06:59
Intake Total 760 / 760 1680 / 1680
Output Total 575 / 575 950 / 950
Balance 185 / 185 730 / 730
SaO2 96
Nasal Cannula flow liters per 2
minute
Physical Exam
General: Comfortable
HEENT: Normocephalic
Cardiovascular: S1-S2
Respiratory: Non-Labored Respirations
GI: Soft and Non Distended
Neurology: Awake, Alert and Other (Follows commands)
Skin: Warm
Labs/Micro/Reports
Lab Data
02/03/25 07:47
02/03/25 07:47
Laboratory Results
02/02/25
10:53
pH 7.43
pCO2 38 H
pO2 97
HCO3 25.2
O2 Delivery Level
Microbiology
02/01/25 14:52 Urine Urine Culture - Final
02/01/25 22:42 Urine Urine Culture - Final
No Significant Growth
02/01/25 20:32 Nose MRSA Screen - Final
No Methicillin Resistant Staphylococcus aureus isolated.
02/01/25 13:38 Blood/Venous Blood Culture - Preliminary
No Growth in 24 hours- Final report to follow
02/01/25 11:00 Blood/Venous Blood Culture - Preliminary
No Growth in 24 hours- Final report to follow
02/01/25 11:00 Nasal Swab Influenza Types A & B (BLADIMIR) - Final
Negative for Influenza A & B, NAAT
Negative results must be combined with clinical observations
and patient history.
Nucleic Acid Amplification test (NAAT)performed on the
[employer] platform.
[2025-02-03 11:12] VITALS: BP 155/90
[2025-02-03] MEDS: KCL 40 MEQ PO (12:23)
[2025-02-03] MEDS: REQUIP 2 MG PO (12:26)
[2025-02-03] MEDS: SINEMET 25-100 1.5 TABLET PO (12:28)
--- NOTE | 2025-02-03 12:38 | W.PN.UPDATE ---
Update Note
Progress Note Update
Acute hypoxic respiratory failure with RR >30, likely aspiration/pneumonitis
-Fever likely related to aspiration event rather then new onset infection
Wean o2 as tolerated
Nebs
Aspiration precautions
Speech IDDSI5, VSE passed
Acute TME vs progressive dementia
DDx: dehydration related to FTT vs UTI
IVF
UCx without acute findings
Sepsis (Temp >100.4/RR >20), source ?
Would check a CTAP with con to be sure we are not missing any other potential sources of sepsis
UA and UCx
IV Atb
Bcx
CTAP showing gallbladder distention/?hydrops
--Ultrasound - Distended gallbladder, but no evidence for cholelithiasis. No findings to suggest acute cholecystitis
Parkinsons
Conitnue carbidopa-levodopa
RLS
Continue ropinirole
HTN
Continue antihypertensives
[id number]
EKG nonischemic
Likley related to mild pHTN
2d echo without WMA
DVT Study ordered if negative low clinical suspicion for PE
Daughter updated
Off of O2, breathing improved, afebrile no white count
DVT study pending
Likely able to DC home today on Doxy x5days
[2025-02-03 13:11] LABS: Glucose - Point of Care 113 mg/dl (70-99)
[2025-02-03] MEDS: STERILE WATER FOR INJECTION 10 ML IV (13:49)
[2025-02-03] MEDS: ROCEPHIN 1000 MG IV (13:50)
--- NOTE | 2025-02-03 14:00 | CM ---
CM following re: discharge planning.
Reviewed pt's chart, met with pt and spoke to pt's daughter Lucille over the phone to update on discharge plan progress.
According to pt is medically stable to be discharged today. Both pt and her daughter are aware, expressed their agreement.
IMM reviewed with daughter Lucille, placed on chart, daughter has a copy.
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 A referral to [facility] made, spoke to admission coordinator Milad, pt is accepted for admission today.
to arrange ambulance transport BLS. PMNC completed and left with
[facility] nursing rapport: [phone]
Discharge instructions fax: [phone]
D/C plan: [facility] today
[2025-02-03 15:59] VITALS: BP 157/95
--- NOTE | 2025-02-04 07:00 | W.DCSUMMARY ---
Discharge Summary
Discharge Data
Date of Admission: 02/01/25
Date of Discharge: 02/03/25
-
Pending Results: No
Hospital Course
Discharge Physician:
Phoenix Montana
Disposition:
[facility]PC
Primary Care Physician:
Prateek Newton
Principal Discharge Diagnosis:
Toxic metabolic encephalopathy, sepsis, Acute hypoxic respiratory failure
Chronic Discharge Diagnosis:
Parkinson dementia, Hypertension, Multiple UTIs, Depression, Restless leg syndrome, COPD on occasional CPAP, Peripheral Artery Disease, Chronic Back pain, Over active bladder
Hospital Course:
79-year-old female presents to the emergency department from nursing facility ([facility]) for evaluation of lethargy and fever. She does have an underlying history of Parkinson's and dementia but according to her daughter she is normally
communicative and responsive, per [facility] she has been extremely lethargic throughout the duration of the morning and became incoherent. She does have a chronic suprapubic catheter and urine appears infected and murky on arrival. She is unable
to provide any history due to mental status change. At ER the initial temp was 100.5 F and respiratory rate 16 then increased >20 with highest 32. Patient was tested negative for influenza A&B. urinalysis was done at the ER which showed bacterial
infection given the fact that the patient has suprapubic catheter was hard to interpret the urinalysis and UTI can not be ruled out. Blood and urine culture were done for definitive diagnosis. Given the patient altered in mental status, CT of the
head was done to rule out hemorrhagic stroke which showed no acute abnormalities. chest X-ray was normal with no evidence of infection or acute abnormalities. Patient stated at the ER that she has abdominal pain and back pain with shortness of
breath with no abdominal tenderness and clear lungs on auscultation.Patient looked dehydrated (dry mucous membrane). CT scan of the abd and pelvis with IV contrast was done to exclude other source of infection or abnormalities and the scan showed
distended bladder with no stones. At ED patient started on IV fluids and antibiotic (Ceftriaxone 1000mg) and admitted for sepsis with initial UTI source and failure to thrive. During hospitalization patient was c/o shortness of breath, multiple
x-rays were done which showed minimal right midlung patchy abnormality which could be atelectasis vs pneumonitis due to aspiration. EKG was normal and troponin elevated which likely related to non ischemic myocardiac injury , ABGA was done and was
abnormal and patient found to have hypoxemic respiratory failure per telemetry registered nurse and received 2L of O2 supplement with nebulizers for secretion clearance. Blood pressure was elevated during hospitalization and patient received multiple dosed of
Hydralazine IV in addition to blood pressure home medications. On 02/03/2025 morning patient was awake,oriented, able to communicant and follow commands with stable vital signs and off the O2 supplement. Speech therapy evaluated her and Video
swallow evaluation test was done which showed no aspiration therefore, her diet had been advanced to soft solid and thin liquids.Given the patient shortness of breath and elevated BNP and troponin levels during hospitalization echocardiogram was
done and showed mildly elevated pulmonary artery pressure therefore, lower extremities Doppler was done to rule out pulmonary embolism cause by DVT and the test was negative. Urine culture results showed no growth and blood culture preliminary
report showed now growth. Per last x-ray this could be aspiration bronchitis and patient was evaluated by OT/PT on the day of discharged and the patient informed about the discharge plane and she verbalized understanding
and the case packer was contacted to arrange for transportation and the daughter informed about the discharged and verbalized understanding. During hospitalization patient received DVT prophylaxis and discharged in stable condition.
Important Imaging Findings:
Chest X-ray Portable 02/01/2025:
No focal consolidation, pleural effusion, or pneumothorax. The cardiomediastinal silhouette is normal. Chronic degenerative changes of the spine.
IMPRESSION:No acute cardiopulmonary process.
CT Head W/o Iv Contrast 02/01/2025:
IMPRESSION:No acute intracranial abnormality.
CT Abd/pelvis W Iv Cont 02/01/2025:
FINDINGS:
LIVER: The liver measures up to 15.3 cm in length. The hepatic echotexture is homogeneous. A cyst in the right hepatic lobe with a thin internal septation measures 4.6 x 3.1 x 3.7 cm.
BILE DUCTS: No intrahepatic or extrahepatic biliary dilatation. The common bile duct measures 6-7 mm in diameter.
GALLBLADDER: Gallbladder distention. No shadowing gallbladder calculus or pericholecystic fluid. The anterior gallbladder wall measures 2 mm in thickness. The sonographic Perdomo's sign was reportedly negative.
RETROPERITONEUM: Hypoechoic focus in the head of the pancreas measuring 1.3 x 1.3 x 1.3 cm. The inferior vena cava and abdominal aorta are incompletely visualized secondary to adjacent bowel gas.
SPLEEN: The spleen measures 9.4 cm in length.
KIDNEYS: The right kidney measures 10.1 x 4.0 x 4.6 cm. The left kidney measures 10.9 x 6.4 x 5.4 cm. Small right upper pole renal cyst. Bilateral parapelvic renal cysts.
IMPRESSION: Distended gallbladder. This may be benign gallbladder hydrops. Acute cholecystitis cannot excluded. This could further be evaluated by abdominal ultrasound if indicated clinically.
Tiny bilateral pleural effusions.
-Large hiatal hernia.
-Hepatic cyst. Too small to characterize hypodense hepatic lesion likely a small cyst or hemangioma.
-Bilateral parapelvic renal cysts Bilateral too small to characterize hypodense renal lesions likely benign cysts..
-Cystic pancreatic head mass. Nonurgent MRI examination recommended for better characterization
Suprapubic catheter.
US Abdomen Complete/Upper 02/02/2025:
IMPRESSION:
-Distended gallbladder, but no evidence for cholelithiasis. No findings to suggest acute cholecystitis.
-Small hypoechoic focus in the head of the pancreas. Possible pseudocyst or cystic pancreatic neoplasm. A nonemergent follow-up abdominal MRI can be performed.
Chest X-ray Portable 02/03/2025:
COMPARISON: 02/01/2025.
FINDINGS/IMPRESSION:
Small patchy opacity in the right midlung, possibly representing atelectasis or a mild pneumonitis.
No pleural effusion or pneumothorax. Stable cardiomediastinal silhouette. Chronic degenerative changes of the spine.
US Peripheral Venous LOWER Ext Bilateral 02/03/2025:
The left lower extremity common femoral, femoral, and popliteal vein are patent, as are the posterior tibial and peroneal veins, demonstrating normal compression with transducer pressure, as well as normal spontaneous and phasic waveforms.
Impression:No evidence of left lower extremity deep venous thrombosis.
Echocardiogram 02/02/2025:
1. Normal biventricular size and function without regional wall motion abnormalities.
2. LVEF is 55-60% by Fernandez's biplane method of discs.
3. Mild aortic stenosis, mean gradient 17 mmHg.
4. Mildly elevated estimated PASP at 40 mmHg.
5. Compared to prior from September 14, 2020, there is new mild aortic stenosis.
Video swallowing test 02/03/2025: no aspiration
Important Procedures:
None
Discharge Plan
-
Patient Disposition: Assisted Living
Discharge Diagnosis/Procedures: Toxic metabolic encephalopathy
Diet: Other diet
Additional Diets: Soft and bite size solid
Activity: As tolerated
Driving Restrictions: No driving
Bathing Restrictions: OK to Shower
Referrals:
Prateek Newton DO [Family Provider, Family Practice] - in less than 1 week
Prescriptions:
New
doxycycline monohydrate 100 mg capsule
100 mg PO BID 5 Days Qty: 10 0RF
Continued
acetaminophen 325 mg Tablet
650 mg PO Q4HPRN PRN (Reason: mild pain/fever>100.4)
bisacodyl [Dulcolax (bisacodyl)] 10 mg Suppository
10 mg GA DAILYPRN PRN (Reason: no BM when MOM is ineffective)
ropinirole 2 mg Tablet
2 mg PO TID@1230,0230,2029
carbidopa-levodopa 25-100 mg Tablet
2 tab PO DAILY@0830
Systane (propylene glycol) 0.4-0.3 % Drops
1 drp BOTH EYES TID
carvedilol 12.5 mg Tablet
12.5 mg PO BID
ascorbic acid (vitamin C) [Vitamin C] 500 mg Tablet
500 mg PO BID
estradiol 0.01 % (0.1 mg/gram) Cream
1 g VAGINAL MOTH@2000
carbidopa-levodopa 25-100 mg Tablet
1.5 tab PO BID@1300,1700
tramadol 50 mg Tablet
50 mg PO Q6HPRN PRN (Reason: moderate pain)
magnesium hydroxide [Milk of Magnesia] 400 mg/5 mL Suspension
2,400 mg PO HSPRN PRN (Reason: constipation)
ropinirole 0.5 mg Tablet
0.5 mg PO DAILY@1700
mirtazapine 15 mg Tablet
15 mg PO HS
Discontinued
acetaminophen 650 mg Tablet Extended Release
650 mg PO BID
Discharge Orders:
Discharge Patient (As Directed); Ordered 02/03/25
Ordered By: Phoenix Melton
Discharge Date and Time
Discharge Date/Time: 02/03/25 17:00
Print Language: ICELANDIC
== END 2025-02-03 17:00 | disposition home or self-care (01) | DRG 871 ==
LOC: 2 NORTH 16:20
PROVIDERS: Nurse Practitioner Family; Physician Assistant; Specialist Research Data Abstracter/Coder; ADMITTING PHYSICIAN Hospitalist; CONSULT PHYSICIAN Internal Medicine Critical Care Medicine; EMERGENCY PHYSICIAN Emergency Medicine; FAMILY PHYSICIAN Student in an Organized Health Care Education/Training Program
DX: A41.9 Sepsis, unspecified organism (principal); G92.8 Other toxic encephalopathy; J96.01 Acute respiratory failure with hypoxia; J69.0 Pneumonitis due to inhalation of food and vomit; J18.9 Pneumonia, unspecified organism; I21.A1 Myocardial infarction type 2; Z66 Do not resuscitate; F02.84 Dementia in other diseases classified elsewhere, unspecified severity, with anxiety; F02.83 Dementia in other diseases classified elsewhere, unspecified severity, with mood disturbance; N39.0 Urinary tract infection, site not specified; K81.0 Acute cholecystitis; J44.0 Chronic obstructive pulmonary disease with (acute) lower respiratory infection; F32.A Depression, unspecified; G20.A1 Parkinson's disease without dyskinesia, without mention of fluctuations; G25.81 Restless legs syndrome; G47.33 Obstructive sleep apnea (adult) (pediatric); G89.29 Other chronic pain; I10 Essential (primary) hypertension; E86.1 Hypovolemia; E86.0 Dehydration; D18.03 Hemangioma of intra-abdominal structures; I73.9 Peripheral vascular disease, unspecified; N32.81 Overactive bladder; R62.7 Adult failure to thrive; Z79.899 Other long term (current) drug therapy; Z93.59 Other cystostomy status; Z11.52 Encounter for screening for COVID-19
CPT/HCPCS: 36600; 51702; 70450; 71045; 74177; 74230; 76700; 80048; 80053; 81003; 81015; 82150; 82805; 82962; 83605; 83690; 83735; 83880; 84484; 85025; 85027; 85610; 87040; 87070; 87086; 87502; 87811; 92610; 92611; 93005; 93306; 93970; 94640; 96361; 96374; 96375; 99285; Q9967

== ENCOUNTER → 2025-02-06 10:30 | Outpatient (REF) | payer MEDICARE, OTHER, SELFPAY ==
[2025-02-06 10:57] LABS: Hematocrit 40.5 % (37.0-47.0); Hemoglobin 13.1 g/dL (12.0-16.0); Mean Corp Hgb Conc. 32.3 g/dL (33.0-37.0); Mean Corpuscular Volume 91.6 fL (81.0-99.0); Nucleated Red Blood Cells % 0 %; Platelet Count 229 10^3/uL (130-400); Red Cell Dist. Width 12.5 % (11.5-14.5)
[2025-02-06 11:10] LABS: Blood Urea Nitrogen 20 mg/dl (7-17); Calcium 8.9 mg/dl (8.4-10.2); Carbon Dioxide 28 mmol/L (22-30); Chloride 111 mmol/L (98-107); Glucose 113 mg/dl (70-99); Potassium 3.8 mmol/L (3.5-5.1); Sodium 145 mmol/L (135-145); eGFR > 60.00
== END ==
LOC: OLABN 10:30
PROVIDERS: ATTENDING PHYSICIAN Student in an Organized Health Care Education/Training Program
DX: I10 Essential (primary) hypertension (principal)
CPT/HCPCS: 36415; 80048; 85025